=== PATIENT | female | born 1965 | race African-American/Black ===

== ENCOUNTER 2023-10-13 11:08 | Inpatient (IN) ==
[2023-10-13] MEDS: ZOSYN VIAL 3.375 GRAMS 3.375 G in NS 100 ML IV 100 ML IV SCH (15:14)
[2023-10-13] MEDS: LOVENOX INJ 80 MG SYR SC SCH (15:51)
[2023-10-13] MEDS: LR 1,000 ML IV 1,000 ML IV SCH (15:51)
[2023-10-13] MEDS: NS 250 ML IV 25 ML IV PRN (15:52)
[2023-10-13] MEDS ORDERED: GLUTOSE 15 GEL ORAL PO PRN (16:54)
[2023-10-13] MEDS ORDERED: D50W ABBOJECT SYR ONE (17:11)
[2023-10-13] MEDS: D50W ABBOJECT SYR IV ONE ×4 (17:15→23:40)
[2023-10-13 17:58] LABS: BASOPHILS # (AUTO) 0.1 X10^3/uL (0.0-0.1); BASOPHILS % (AUTO) 1.5 % (0.2-1.0); EOSINOPHILS # (AUTO) 0.1 x10^3/uL (0.0-0.2); EOSINOPHILS % (AUTO) 2.1 % (0.9-2.9); HEMATOCRIT 32.5 % (36.0-47.0); HEMOGLOBIN 10.8 g/dL (12.0-16.0); LYMPHOCYTES # (AUTO) 1.3 X10^3/uL (1.3-2.9); MEAN CORPUSCULAR HEMOGLOBIN 27.1 pg (27.0-34.0); MEAN CORPUSCULAR HGB CONC 33.3 g/dL (33.0-35.0); MEAN CORPUSCULAR VOLUME 81.1 fL (80.0-100.0); MEAN PLATELET VOLUME 10.1 fL (7.4-11.0); MONOCYTES # (AUTO) 0.3 x10^3/uL (0.3-0.8); MONOCYTES % (AUTO) 7.1 % (0.0-13.0); NEUTROPHILS % (AUTO) 54.3 % (42.0-75.0); PLATELET COUNT 225 X10^3/uL (150.0-450.0); RED BLOOD COUNT 4.01 X10^6/uL (3.5-5.4); RED CELL DISTRIBUTION WIDTH 13.7 % (11.6-16.5); WHITE BLOOD COUNT 3.7 X10^3/uL (3.6-10.0)
[2023-10-13 18:08] LABS: ALANINE AMINOTRANSFERASE 52 Units/L (12-78); ALBUMIN 3.5 g/dL (3.4-5.0); ALKALINE PHOSPHATASE 115 Units/L (46-116); ASPARTATE AMINO TRANSFERASE 12 Units/L (15-37); BLOOD UREA NITROGEN 19 mg/dL (7-18); CALCIUM 9.1 mg/dL (8.5-10.1); CARBON DIOXIDE 31.3 mmol/L (21-32); CHLORIDE 104 mmol/L (98-107); CREATININE 0.84 mg/dL (0.55-1.02); POTASSIUM 3.6 mmol/L (3.5-5.1); SODIUM 142 mmol/L (136-145); TOTAL PROTEIN 7.7 g/dL (6.4-8.2); eGFR NON BLACK RACES > 60 (>60)
[2023-10-13 18:11] VITALS: BMI 29.5
[2023-10-13 18:13] LABS: GLUCOSE 37 mg/dL (65-99)
[2023-10-13] MEDS ORDERED: CONSULT PHARMACY - POTASSIUM & MAGNESIUM XX SCH (19:00)
[2023-10-13] MEDS: D5 LR 1,000 ML 1,000 ML IV SCH (19:00)
[2023-10-13] MEDS: CATAPRES TAB 0.2 MG PO ONE (19:08)
[2023-10-13] MEDS: CATAPRES TAB 0.2 MG ONE (19:12)
[2023-10-13] MEDS: COREG TAB 6.25 MG PO SCH (21:28)
--- NOTE | 2023-10-13 21:40 | CT ---
EXAM: CTA AORTA WITH RUNOFF HISTORY: critical leg ischemia; hx:stroke ; unable to place arms above head for scan COMPARISON: None available TECHNIQUE: CT angiography of the abdominal aorta with bilateral lower extremity runoff with intravenous contrast . Three-dimensional reconstructions and/or MIPS images were produced and reviewed. FINDINGS: CTA aorta: There are bilateral pleural effusions present, moderate on the right and small on the left . Bilateral ground-glass airspace infiltrates and interseptal prominence suggests pulmonary edema. Some artifact from the patient's arms reduces sensitivity. Reflux of contrast into the hepatic vascu lature suggests changes of right heart dysfunction. Kidneys are not obstructed. Normal spleen. Non inflamed pancreas. Food material within the stomach. Large coarse mass in the uterus suggests involuting fibroid spanning greatest axial dimension of 7.1 cm. Additional smaller calcified fibroids are noted. The bowel is not obstructed. There is diffuse soft tissue anasarca. The abdominal aorta tapers normally. The celiac and superior mesenteric arteries are patent. The re nal arteries are patent. The common iliac bifurcation is patent. There is good flow in the bilatera l internal and external iliac arteries with moderate plaque in the midportion of the left internal il iac artery. The bilateral common femoral arteries demonstrate good flow. CTA bilateral lower extremity runoff: The right superficial femoral artery is patent with moderate mu ltifocal atherosclerotic plaque. There is 30% luminal narrowing of the distal right popliteal artery . The right anterior tibial artery is occluded along its length. There is flow noted in the posterior tibial and peroneal branch to the ankle. There is some reconstitution of flow in the dorsalis pedis artery at the foot due to collateralization. The left superficial femoral artery is patent. The left popliteal artery is patent with 25% luminal narrowing of the distal portion. The left anterior tibial artery is patent. There is long segment reduced flow in the left posterior tibial artery with no visualization of flow at the level just above the ankle. The left peroneal bra nch demonstrates weak, trickle flow which does not reach the ankle. [id number] bilateral lower extremity edema/anasarca is present. No suspicious bony lesions. IMPRESSION: CTA aorta: Signs of congestive heart failure in the lung bases. Large arteries of the abdomen are pa tent. CTA bilateral lower extremity runoff: Occlusion of the right anterior tibial artery along its length. Some reconstitution of flow in the right dorsalis pedis. There is long segment reduced flow in the left posterior tibial artery with no visualization of flow at the level just above the ankle. The left peroneal branch demonstrates weak, trickle flow which does not reach the ankle. Dose reduction techniques including automated exposure control (AEC) and adjustment of mA and kv were utilized. THIS IS AN ELECTRONICALLY VERIFIED FINAL REPORT 10/13/2023 9:37 PM - Electronically signed by Greg Barrera MD
[2023-10-13] MEDS: NS + KCL 20 MEQ/L 1,000 ML IV SCH (22:26)
[2023-10-13] MEDS: LOPRESSOR TAB 25 MG PO ONE (22:34)
[2023-10-13] MEDS: PERCOCET TAB 5/325 MG PO PRN (22:37)
[2023-10-14] MEDS: K-DUR TAB 20 MEQ PO SCH (00:51)
[2023-10-14] MEDS: MAG-OX TAB PO SCH (01:54)
[2023-10-14] MEDS: MAGNESIUM SULFATE 1 GRAM/100 mL PREMIX 1 G/100 ML BAG IV SCH (03:34)
[2023-10-14 06:13] LABS: BLOOD UREA NITROGEN 14 mg/dL (7-18); CALCIUM 8.7 mg/dL (8.5-10.1); CARBON DIOXIDE 29.7 mmol/L (21-32); CHLORIDE 105 mmol/L (98-107); GLUCOSE 69 mg/dL (65-99); MAGNESIUM 2.3 mg/dL (2.0-2.9); POTASSIUM 3.6 mmol/L (3.5-5.1); SODIUM 141 mmol/L (136-145); eGFR NON BLACK RACES > 60 (>60)
[2023-10-14] MEDS: D50W ABBOJECT SYR IV ONE (06:24)
[2023-10-14] MEDS: PROTONIX TAB 40 MG PO SCH (09:16)
[2023-10-14] MEDS: LIPITOR TAB 20 MG PO SCH (09:16)
[2023-10-14] MEDS: CELEXA PO SCH (09:16)
[2023-10-14] MEDS: NovoLIN R (or HumuLIN R) SC PRN (18:00)
--- NOTE | 2023-10-14 23:42 | NOTE.SOAP ---
Soap Note Note for Day of Date of Exam: 10/14/23 Subjective Data Subjective Data: Patient with evidence b/l LE ischemia with right 4th toe ischemia. Objective Data Temperature: 98.4 F Pulse Rate: 64 Respiratory Rate: 16 Blood Pressure: 176/83 O2 Sat by Pulse Oximetry: 95 Objective Data: Exam unchanged. CTA shows right AT and left PT occlusion Assessment Assessment: B/L LE ischemia Plan Plan: Continue Lovenox, Plan right leg arterial intervention on 10/16/2023.
--- NOTE | 2023-10-15 13:06 | NOTE.SOAP ---
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 Consulted to discuss options regarding right foot. Patient doing well; she expresses pain to the right foot and would like the toe amputated. Denies any constitutional symptoms at this time Objective Data Objective Data: Gangrenous right 4th digit, dry without maceration, purulence, drainage or malodor. No crepitus or erythema. Faintly palpable pedal pulses. Gross epicritic and protective sensation intact Assessment Assessment: Gangrene, right 4th digit PAD Plan Plan: Patient was seen bedside this afternoon. Diagnosis and treatment discussed with patient and family members in detail. Plan is for patient to undergo vascular intervention tomorrow and we will take the patient for 4th digit amputation of the right foot on friday. Patient NPO tonight for vascular and will be npo tomorrow night for friday. Patient will likely be okay for discharge from our standpoint after the procedure on friday.
[2023-10-15] MEDS: K-DUR TAB 20 MEQ PO SCH (19:21)
[2023-10-15] MEDS: CONSULT PHARMACY - POTASSIUM & MAGNESIUM XX SCH (19:21)
[2023-10-15] MEDS: OMNIPAQUE 350 mg/mL 50 mL BTL 50 ML ONE (19:22)
[2023-10-15] MEDS: OMNIPAQUE 350 mg/mL 100 mL BTL 100 ML ONE (19:22)
[2023-10-16] MEDS: HIBICLENS WASH EXT ONE (05:40)
--- NOTE | 2023-10-16 09:20 | NOTE.SOAP ---
Soap Note Note for Day of Date of Exam: 10/15/23 Subjective Data Subjective Data: Gregory doing well.Seen by Dr. El, podiatry , and she is scheduled for right leg intervention tomorrow 10/16/[address] El will perform right 4th toe ray amputation the nextg day, 10/17/2023. Hopefullly she can be discharged home on 10/17/2023 after the toe amputation Objective Data Temperature: 98.6 F Pulse Rate: 73 Respiratory Rate: 18 Blood Pressure: 168/84 O2 Sat by Pulse Oximetry: 97 Objective Data: right foot stable, gangrene right 4th toe with demarcation at it's base Assessment Assessment: critical ischemia right leg with gangrene right 4th toe, critical ischemia left leg as well Plan Plan: as above, left leg to have revascularization at a later date as outp atient.
--- NOTE | 2023-10-16 10:21 | EKG ---
Test Reason : pre-op for surgery Blood Pressure : */* mmHG Vent. Rate : 64 BPM Atrial Rate : 64 BPM P-R Int : 206 ms QRS Dur : 94 ms QT Int : 470 ms P-R-T Axes : 44 5 80 degrees QTc Int : 484 ms Sinus rhythm with premature atrial complexes Minimal voltage criteria for LVH, may be normal variant ( [place] product ) Anterior infarct , age undetermined Abnormal ECG No previous ECGs available Confirmed by Sharan La MD ([id number]) on 10/16/2023 4:49:24 PM Referred By: Confirmed By: Sharan La MD
--- NOTE | 2023-10-16 10:53 | DR.H&P ---
H&P History & Physical for Day of: H&P Date: 10/13/23 Chief Complaint Chief Complaint: pain both legs at rest with gangrenous changes right 4th toe History of Present Illness History of Present Illness: 58 yo female with history of hypertension, diabetes and hyperlipidemia who had a left hemispheric stroke in the past with paralysis of the right arm and right leg partially with partially Aphasia. She also has rest pain of both legs with gangrenous changes the right 4th toe. Ankle bracial indices obtained preoperatively show index of 0.7 on the right and 0.5 on the left. Waveforms are monophasic bilaterally. Past Medical History Past Medical History: CVA (With residual weakness of the right arm and right leg and aphasia ), Dyslipidemia, GERD and Hypertension Past Surgical History Surgical History: Other (cataract surgery ) Family History Family Medical History: Diabetes Mellitus, Cancer and Hypertension Social History Does patient currently use any type of tobacco product: No Type of Tobacco Use: None Does any household member use tobacco: No Alcohol Use: Rarely Drug Use: None Medications Home Medications: Home Medications Medication Instructions Recorded Confirmed Type apixaban 5 mg tablet (Eliquis) 5 mg PO BID 10/13/23 10/13/23 History atorvastatin 20 mg tablet 20 mg PO QDAY 10/13/23 10/13/23 History carvedilol 6.25 mg tablet 6.25 mg PO BID 10/13/23 10/13/23 History citalopram 10 mg tablet 10 mg PO QDAY 10/13/23 10/13/23 History famotidine 20 mg tablet 20 mg PO QPM PRN 10/13/23 10/13/23 History glimepiride 4 mg tablet 4 mg PO BID 10/13/23 10/13/23 History Allergies Allergies Allergy/AdvReac Type Severity Reaction Status Date / Time No Known Allergies Allergy Verified 10/13/23 15:06 Labs 10/13/23 17:13 10/14/23 05:35 Labs: Laboratory WBC 3.7 X10^3/uL (3.6-10.0) 10/13/23 17:13 RBC 4.01 X10^6/uL (3.5-5.4) 10/13/23 17:13 Hgb 10.8 g/dL (12.0-16.0) L 10/13/23 17:13 Hct 32.5 % (36.0-47.0) L 10/13/23 17:13 MCV 81.1 fL (80.0-100.0) 10/13/23 17:13 MCH 27.1 pg (27.0-34.0) 10/13/23 17:13 MCHC 33.3 g/dL (33.0-35.0) 10/13/23 17:13 RDW 13.7 % (11.6-16.5) 10/13/23 17:13 Plt Count 225 X10^3/uL (150.0-450.0) 10/13/23 17:13 MPV 10.1 fL (7.4-11.0) 10/13/23 17:13 Neut % (Auto) 54.3 % (42.0-75.0) 10/13/23 17:13 Lymph % (Auto) 35.0 % (21.0-51.0) 10/13/23 17:13 [place] % (Auto) 7.1 % (0.0-13.0) 10/13/23 17:13 Eos % (Auto) 2.1 % (0.9-2.9) 10/13/23 17:13 Baso % (Auto) 1.5 % (0.2-1.0) H 10/13/23 17:13 Neut # (Auto) 2.0 x10^3/uL (2.2-4.8) L 10/13/23 17:13 Lymph # (Auto) 1.3 X10^3/uL (1.3-2.9) 10/13/23 17:13 [place] # (Auto) 0.3 x10^3/uL (0.3-0.8) 10/13/23 17:13 Eos # (Auto) 0.1 x10^3/uL (0.0-0.2) 10/13/23 17:13 Baso # (Auto) 0.1 X10^3/uL (0.0-0.1) 10/13/23 17:13 Absolute Nucleated RBC 0.2 /100WBC 10/13/23 17:13 Sodium 141 mmol/L (136-145) 10/14/23 05:35 Corrected Sodium TNP 10/14/23 05:35 Potassium 3.6 mmol/L (3.5-5.1) 10/14/23 05:35 Chloride 105 mmol/L (98-107) 10/14/23 05:35 Carbon Dioxide 29.7 mmol/L (21-32) 10/14/23 05:35 BUN 14 mg/dL (7-18) 10/14/23 05:35 Creatinine 0.80 mg/dL (0.55-1.02) 10/14/23 05:35 Est GFR (MDRD) Af Amer > 60 (>60) 10/14/23 05:35 Est GFR (MDRD) Non-Af > 60 (>60) 10/14/23 05:35 Glucose 69 mg/dL (65-99) 10/14/23 05:35 POC Glucose (mg/dL) 188 mg/dL (65-99) H 10/16/23 06:43 Calcium 8.7 mg/dL (8.5-10.1) 10/14/23 05:35 Corrected Calcium TNP 10/13/23 17:13 Magnesium 2.3 mg/dL (2.0-2.9) 10/14/23 05:35 Total Bilirubin 0.30 mg/dL (0.2-1.0) 10/13/23 17:13 AST 12 Units/L (15-37) L 10/13/23 17:13 ALT 52 Units/L (12-78) 10/13/23 17:13 Alkaline Phosphatase 115 Units/L (46-116) 10/13/23 17:13 Total Protein 7.7 g/dL (6.4-8.2) 10/13/23 17:13 Albumin 3.5 g/dL (3.4-5.0) 10/13/23 17:13 Globulin 4.2 g/dL (2.5-4.5) 10/13/23 17:13 Albumin/Globulin Ratio 0.8 Ratio (1.1-2.1) L 10/13/23 17:13 Review of Systems Constitutional: See HPI Eyes: No Symptoms Reported ENT: No Symptoms Reported Respiratory: No Symptoms Reported Cardiovascular: See HPI Gastrointestinal: See HPI Genitourinary: No Symptoms Reported Musculoskeletal: See HPI Skin: No Symptoms Reported Neurological: See HPI Physical Exam Vital Signs: Vital Signs Temperature 98.6 F Temperature 98.3 F Temperature 98.5 F Pulse Rate [Radial] 64 Pulse Rate [Radial] 75 Pulse Rate 73 Respiratory Rate 18 Respiratory Rate 18 Respiratory Rate 18 Blood Pressure [Left Arm] 160/86 Blood Pressure [Left Arm] 169/96 Blood Pressure [Left Arm] 174/80 Blood Pressure 168/84 O2 Sat by Pulse Oximetry 97 O2 Sat by Pulse Oximetry 99 O2 Sat by Pulse Oximetry 99 Oriented: Normal, Time, Person, Place and Other (patient has some difficulty getting words out due to aphasia but understands completely ) Eyes: Normal Ear: Normal Nose: Normal Throat: Normal Respiratory: Clear Throughout Cardiovascular: Normal : Normal Auscultation: Bowel Sounds: Normal Palpation: Normal Tenderness: Normal Skin: Normal Musculoskeletal: Normal (normal composition of arms and legs however does have right side disability of arm and leg. This is not complete ) Psychiatric: Normal Mood Description: Calm Affect: Normal Speech Pattern: Aphasic (nonfluent ) Assessment/Plan (1) Atherosclerosis of [place] arteries of extremities with rest pain, right leg: Narrative Support Text: patient to be admitted and placed on therapeutic Lovenox and do. Will obtain CT Angiogrm of the aorta with bilateral lower extremity runoff. Will start IV antibiotics. Consult Podiatry to evaluate the gangrenous right fourth toe Status: Acute (2) Atherosclerosis of [place] arteries of extremities with rest pain, left leg: Status: Acute Plan: critical ischem of the left leg can be addressed as an outpatient after we resolve the right leg problem (3) Personal history of cerebrovascular accident with current residual effects: Status: Acute Plan: stable (4) Essential (primary) hypertension: Status: Acute Plan: home medications (5) GE reflux: Status: Acute Plan: po Protonix (6) Hyperlipidemia: Status: Acute Plan: home medications (7) Type 2 diabetes mellitus: Status: Acute Plan: sliding scale insulin for now Review H&P Reviewed: Yes Patient was examined?: Yes
[2023-10-16] MEDS: NS 1,000 ML IV 1,000 ML ONE ×2 (11:48→13:32)
[2023-10-16] MEDS: XYLOCAINE 2 % (PLAIN) ONE (12:34)
[2023-10-16] MEDS ORDERED: PRECEDEX INJ VIAL ONE (12:34)
[2023-10-16] MEDS ORDERED: KETAMINE HCL ONE (12:34)
[2023-10-16] MEDS: VERSED ONE (12:34)
[2023-10-16] MEDS: FENTANYL VIAL INJ 100 mcg ONE (12:34)
[2023-10-16] MEDS: DIPRIVAN VIAL 20 ML ONE ×2 (12:34→13:37)
[2023-10-16] MEDS: OFIRMEV IV 1000 MG VIAL 1,000 MG/100 ML VIAL IV ONE (12:34)
[2023-10-16] MEDS: NS 100 ML IV 100 ML ONE (12:36)
[2023-10-16] MEDS: ANCEF VIAL 1 GRAM ONE (12:36)
[2023-10-16] MEDS: DECADRON INJ ONE (12:47)
[2023-10-16] MEDS: ZOFRAN INJ 4 MG VIAL ONE (12:47)
[2023-10-16] MEDS: PEPCID 20 MG VIAL ONE (12:47)
[2023-10-16] MEDS: ROBINUL ONE (12:51)
[2023-10-16] MEDS: MARCAINE 0.5% ONE (13:06)
[2023-10-16] MEDS: VISIPAQUE 100 ML ONE (13:06)
[2023-10-16] MEDS: VISIPAQUE 50 ML ONE (13:06)
[2023-10-16] MEDS: HEPARIN SODIUM IN D5W 75,000 UNITS/1,500 ML BAG ONE (13:06)
[2023-10-16] MEDS: HEPARIN SODIUM INJ 5000 UNITS ONE ×2 (13:09→14:31)
[2023-10-16] MEDS: NS 500 ML IV 500 ML IV ONE (13:31)
[2023-10-16] MEDS: PROTAMINE SULFATE 50 MG VIAL ONE (14:31)
--- NOTE | 2023-10-16 14:46 | OR.IMMED ---
IMMEDIATE POST-OP NOTE Immediate Post-Op Note Date of surgery/procedure: 10/16/23 Pre-Op Diagnosis: Critical ischemia of right leg with gangerene of right forth toe Post-Op Diagnosis: same Procedure: diagnostic aortogram, diagnostic arteriogram right leg, atherectomy and balloon Angioplasty of proximal right posterior tibial occlusion Description of Procedure: see dictation Surgeon/Bootmaker Hand: Leonardo Findings: completely occluded right anterior tibial artery, occluded proximal right posterior tibial artery with reconstitution at the ankle, occluded mid portion of peroneal artery Estimated Blood Loss: 150 cc Complications: none Progress Notes: patient returned To the floor. ,Begin ADA diet. For right fourth toe amputation tomorrow. probably discharg heome after that .
[2023-10-17] MEDS: HIBICLENS WASH EXT ONE (05:36)
[2023-10-17 05:48] LABS: BASOPHILS % (AUTO) 0.4 % (0.2-1.0); EOSINOPHILS % (AUTO) 0.7 % (0.9-2.9); HEMATOCRIT 31.9 % (36.0-47.0); HEMOGLOBIN 10.5 g/dL (12.0-16.0); LYMPHOCYTES # (AUTO) 1.3 X10^3/uL (1.3-2.9); LYMPHOCYTES % (AUTO) 18.5 % (21.0-51.0); MEAN CORPUSCULAR HEMOGLOBIN 26.8 pg (27.0-34.0); MEAN CORPUSCULAR HGB CONC 33.1 g/dL (33.0-35.0); MEAN CORPUSCULAR VOLUME 81.1 fL (80.0-100.0); MEAN PLATELET VOLUME 9.9 fL (7.4-11.0); MONOCYTES # (AUTO) 0.8 x10^3/uL (0.3-0.8); MONOCYTES % (AUTO) 10.7 % (0.0-13.0); NEUTROPHILS # (AUTO) 4.9 x10^3/uL (2.2-4.8); NEUTROPHILS % (AUTO) 69.7 % (42.0-75.0); PLATELET COUNT 212 X10^3/uL (150.0-450.0); RED BLOOD COUNT 3.93 X10^6/uL (3.5-5.4); RED CELL DISTRIBUTION WIDTH 13.8 % (11.6-16.5)
[2023-10-17] MEDS ORDERED: APRESOLINE INJ 20 MG VIAL ONE (07:31)
[2023-10-17] MEDS: NORMODYNE INJ 20 MG VIAL IVP ONE (07:38)
[2023-10-17] MEDS: APRESOLINE INJ 20 MG VIAL IVP ONE (08:11)
--- NOTE | 2023-10-17 08:15 | CT ---
EXAM:BRAIN W/O CONHISTORY:Altered mental statusTECHNIQUE:Axial noncontrast images with coronal and sagittal reformats. Dose reduction procedures were used with mA/kv adjusted for body size.COMPARISON:NoneFINDINGS:The ventricles are normal in size shape and position with the exception compensatory enlargement the left lateral ventricle secondary to what appears to be a large old CVA in the distribution of the left middle cerebral artery. A recent extension can not be excluded. There also appears to be some mild compensatory enlargement of 3rd ventricle secondary to old CVAs involving the left basal ganglia. Recent extension not excluded. There are no focal areas of abnormal attenuation to suggest recent CVA, hemorrhage, mass lesion, or extra-axial fluid collection. The calvarium is intact. The visualized sinuses are clear. If acute CVA or extension of the patient's old CVAs is a clinical consideration MRI with diffusion imaging would be of further diagnostic value and should be considered.IMPRESSION:No definite acute intracranial abnormality identified (see recommendation as above)Large old CVA in the distribution of the left MCA. Recent extension not excludedOld CVAs involving the left basal ganglia. Recent extension not excludedTHIS IS AN ELECTRONICALLY VERIFIED FINAL REPORT10/17/2023 8:11 AM - Electronically signed by Dong Colon MD
--- NOTE | 2023-10-17 08:31 | EKG ---
Test Reason : AMS Blood Pressure : */* mmHG Vent. Rate : 68 BPM Atrial Rate : 68 BPM P-R Int : 192 ms QRS Dur : 90 ms QT Int : 394 ms P-R-T Axes : 35 -16 87 degrees QTc Int : 418 ms Normal sinus rhythm Inferior infarct , age undetermined Possible Anterior infarct (cited on or before 16-OCT-2023) Abnormal ECG When compared with ECG of 16-OCT-2023 10:04, premature atrial complexes are no longer present Questionable change in initial forces of Anterior leads QT has shortened Confirmed by Sharan La MD ([id number]) on 10/17/2023 10:04:09 AM Referred By: Confirmed By: Sharan La MD
[2023-10-17] MEDS: NORMODYNE INJ 100 MG VIAL ONE (08:34)
--- NOTE | 2023-10-17 09:26 | RAD ---
EXAMINATION: CHEST, 1 VIEW HISTORY: AMS; HX- LOWER LEG ISHEMIA . COMPARISON STUDY: None. TECHNIQUE: Single portable AP view of the chest upright FINDINGS: Hazy opacities scattered throughout both lungs. Mild cardiac silhouette enlargement with mild pulmon hawk vascular congestion. Bones are intact. IMPRESSION: Hazy opacities scattered throughout both lungs, cardiac silhouette enlargement with pulmonary vascula r congestion. THIS IS AN ELECTRONICALLY VERIFIED FINAL REPORT 10/17/2023 9:23 AM - Electronically signed by Bertha Fischer MD
[2023-10-17] MEDS: NOZIN NASAL SANITIZER TP SCH (09:28)
[2023-10-17] MEDS: NS 1,000 ML IV 1,000 ML ONE (09:42)
[2023-10-17] MEDS: ASPIRIN 81 MG CHEWTAB PO SCH (10:40)
--- NOTE | 2023-10-17 10:55 | NOTE.SOAP ---
Soap Note Note for Day of Date of Exam: 10/17/23 Subjective Data Subjective Data: Patient was seen bedside in the preop area today. Sleepy but alert. She was unresponsive this am with vitals stable; stroke was ruled out. She denies anymore pain to her fourth toe after intervention yesterday Objective Data Objective Data: Toe improved in color, has a capillary refill and mild eschar on the dorsal aspect. No crepitus or erythema. Palpable pedal pulses. Gross epicritic and protective sensation intact Assessment Assessment: Gangrene, right 4th digit PAD Plan Plan: Patient was seen am, upon evaluation we agreed that the toe is responding well to vascular intervention and opted to monitor how it improves. We will not be doing the toe amputation today. It is stable and improving in color. Patient can follow up with dr. rodriguez in one week to see progress. Patient okay for dis charge from podiatry standpoint
--- NOTE | 2023-10-17 12:34 | DR.CONSULT ---
CONSULT Consultation for Day of: Date: 10/17/23 Chief Complaint Chief Complaint: AMS Allergies Allergies Allergy/AdvReac Type Severity Reaction Status Date / Time No Known Allergies Allergy Verified 10/13/23 15:06 History of Present Illness History of Present Illness: PT IS 58BF, PT OF DR VILLARREAL WITH ACUTE ISCHEMIC LIMB DISEASE, SP VASCULAR INTERVENTION EARLIER THIS WEEK. PT HAS PMH OF CVA WITH RESIDUAL DEFICITS TO RIGHT UPPER AND LOWER EXTREMITIES. PT HAD REPORTS OF AMS THIS AM, CONFUSION WHICH WAS NEW FOR HER PER NURSING STAFF. CT HEAD, CE AND EKG WAS ORDERED WITH CXR TO RO ACUTE FINDINGS. UPON ASSESSMENT THIS AM, FOLLOWING AMS EPISODE, PT WAS AWAKE AND RESPONSIVE WITH APPROPTIATE RESPONSES AT THAT TIME. Past Medical History Past Medical History: CVA (With residual weakness of the right arm and right leg and aphasia ), Dyslipidemia, GERD and Hypertension Past Surgical History Surgical History: Other (cataract surgery ) Family History Family Medical History: Diabetes Mellitus, Cancer and Hypertension Social History Does patient currently use any type of tobacco product: No Type of Tobacco Use: None Does any household member use tobacco: No Alcohol Use: Rarely Drug Use: None Medications Home Medications: No Known Allergies Allergy (Verified 10/13/23 15:06) CONTINUE taking the following medications apixaban 5 mg tablet (Eliquis) 5 mg PO BID 10/13/23 [History] atorvastatin 20 mg tablet 20 mg PO QDAY 10/13/23 [History] carvedilol 6.25 mg tablet 6.25 mg PO BID 10/13/23 [History] citalopram 10 mg tablet 10 mg PO QDAY 10/13/23 [History] famotidine 20 mg tablet 20 mg PO QPM PRN 10/13/23 [History] glimepiride 4 mg tablet 4 mg PO BID 10/13/23 [History] Review of Systems Constitutional: Weakness Eyes: No Symptoms Reported ENT: No Symptoms Reported Respiratory: denies Shortness of Breath Cardiovascular: denies Chest Pain Gastrointestinal: denies No Symptoms Reported Genitourinary: Incontinence Musculoskeletal: Leg Pain Skin: Wound Neurological: Weakness (CHRONIC RUE AND RLE), Change in Speech and Confusion Physical Exam Vital Signs: Vital Signs Pulse Rate [Radial] 77 Pulse Rate 69 Respiratory Rate 18 Respiratory Rate 20 Blood Pressure [Left Arm] 186/88 Blood Pressure 165/83 O2 Sat by Pulse Oximetry 100 O2 Sat by Pulse Oximetry 94 Oriented: Person and Place Eyes: Normal Nose: Normal Respiratory: RLL Diminished and LLL Diminished Cardiovascular: Normal Auscultation: Bowel Sounds: Normal Skin: Wound Musculoskeletal: Right, Arm, Leg, Foot (NECROTIC TOES TO RIGHT FOOT), Motor Deficit, Sensory Deficit and Instability Mood Description: Flat Speech Pattern: Appropriate, Delayed (CHRONIC SPEECH IMPAIRMENT) and Slurred Plan (1) AMS (altered mental status): Status: Acute Narrative Support Text: ACUTE EPISODE, AM LABS, CXR EKG AND CE STAT CT HEAD TO RO ACUTE CVA CONTINUE BP CONTROL, STATIN THERAPY ADD FLP PT AM LAB COLLECTION (2) Atherosclerosis of [place] arteries of extremities with rest pain, right leg: Status: Acute (3) Atherosclerosis of [place] arteries of extremities with rest pain, left leg: Status: Acute (4) Personal history of cerebrovascular accident with current residual effects: Status: Acute (5) Essential (primary) hypertension: Status: Acute (6) GE reflux: Status: Acute (7) Hyperlipidemia: Status: Acute (8) Type 2 diabetes mellitus: Status: Acute
--- NOTE | 2023-10-17 13:13 | NOTE.SOAP ---
Soap Note Note for Day of Date of Exam: 10/17/23 Subjective Data Subjective Data: POD # 1 after revascularization of the rigth foot with atherectomy and balloon angioplasty of the right posterior tibial artery which is the only artery to the foot. Was planning on amputation right 4th toe by Dr. El today but the toe is much improved and he is going [place] observe this . History of right hemipareisis from CVA in the past and this AM was resting and not responding. She is now back to [facility] and CT of head negative. Did have hypertension treated with IV Lopressor and BP under better control. Objective Data Temperature: 98.2 F Pulse Rate: 69 Respiratory Rate: 18 Blood Pressure: 165/83 O2 Sat by Pulse Oximetry: 100 Objective Data: Asa above , right leg warm with improvement of the right 4th toe. Assessment Assessment: S/P revascularization of right foot, doing well, episode this AM unexplained Plan Plan: Was planning on discharge today . Will delay until tomorrow. Will plan arterial intervention of the left leg in future as outpatient.
[2023-10-17] MEDS: LASIX IVP ONE (13:17)
[2023-10-17] MEDS: K-DUR TAB 20 MEQ PO ONE (13:17)
[2023-10-17] MEDS: ROBITUSSIN DM PO SCH (13:17)
[2023-10-17] MEDS: NS 1/2 1,000 ML IV 1,000 ML IV SCH (13:44)
[2023-10-17] MEDS: NS 1/2 1,000 ML IV 1,000 ML IV ONE (13:47)
[2023-10-17] MEDS ORDERED: DUONEB 0.5 MG/3 MG (3 mL) NEB PRN (16:32)
[2023-10-18] MEDS ORDERED: NS 1/2 1,000 ML IV 1,000 ML IV ONE (03:06)
[2023-10-18] MEDS ORDERED: HIBICLENS WASH EXT ONE (05:00)
[2023-10-18 08:38] LABS: BASOPHILS # (AUTO) 0.1 X10^3/uL (0.0-0.1); BASOPHILS % (AUTO) 1.4 % (0.2-1.0); EOSINOPHILS # (AUTO) 0.2 x10^3/uL (0.0-0.2); EOSINOPHILS % (AUTO) 3.7 % (0.9-2.9); HEMATOCRIT 28.3 % (36.0-47.0); HEMOGLOBIN 9.5 g/dL (12.0-16.0); LYMPHOCYTES # (AUTO) 1.1 X10^3/uL (1.3-2.9); LYMPHOCYTES % (AUTO) 16.8 % (21.0-51.0); MEAN CORPUSCULAR HEMOGLOBIN 27.1 pg (27.0-34.0); MEAN CORPUSCULAR HGB CONC 33.6 g/dL (33.0-35.0); MEAN CORPUSCULAR VOLUME 80.7 fL (80.0-100.0); MEAN PLATELET VOLUME 9.4 fL (7.4-11.0); MONOCYTES # (AUTO) 0.7 x10^3/uL (0.3-0.8); NEUTROPHILS # (AUTO) 4.5 x10^3/uL (2.2-4.8); NEUTROPHILS % (AUTO) 68.1 % (42.0-75.0); PLATELET COUNT 188 X10^3/uL (150.0-450.0); RED BLOOD COUNT 3.51 X10^6/uL (3.5-5.4); RED CELL DISTRIBUTION WIDTH 13.3 % (11.6-16.5); WHITE BLOOD COUNT 6.6 X10^3/uL (3.6-10.0)
[2023-10-18 08:48] LABS: ALANINE AMINOTRANSFERASE 24 Units/L (12-78); ALBUMIN 2.8 g/dL (3.4-5.0); ALKALINE PHOSPHATASE 87 Units/L (46-116); ASPARTATE AMINO TRANSFERASE 12 Units/L (15-37); BLOOD UREA NITROGEN 10 mg/dL (7-18); CALCIUM 8.4 mg/dL (8.5-10.1); CARBON DIOXIDE 33.7 mmol/L (21-32); CHLORIDE 101 mmol/L (98-107); COR CA(FOR HYPOALB) 9.4 mg/dL (8.5-10.1); CREATININE 0.85 mg/dL (0.55-1.02); GLUCOSE 93 mg/dL (65-99); POTASSIUM 3.6 mmol/L (3.5-5.1); SODIUM 139 mmol/L (136-145); TOTAL PROTEIN 6.6 g/dL (6.4-8.2); eGFR NON BLACK RACES > 60 (>60)
--- NOTE | 2023-10-18 12:47 | RAD ---
EXAM: CHEST, 1 VIEW HISTORY: PNEUMONIA, FLUID OVERLOAD; HX" CVA. HTN, DM COMPARISON: 10/17/2023 FINDINGS: The trachea is midline. The cardiac silhouette is unremarkable . The lungs are clear without focal infiltrate or effusion. The bony thorax is unremarkable. IMPRESSION: No acute cardiopulmonary disease. THIS IS AN ELECTRONICALLY VERIFIED FINAL REPORT 10/18/2023 12:43 PM - Electronically signed by Matthieu Helm MD
--- NOTE | 2023-10-18 15:26 | NOTE.SOAP ---
Soap Note Note for Day of Date of Exam: 10/18/23 Subjective Data Subjective Data: S/P revascularization of right leg with improvement of ischemiic right 4th toe. Had episode yesterday when she would not speak, seen in consultation by Umu Ortiz, CT of head negative and she has returned to baseline. Because right 4th toe improved, toe kayla be observed. Was planning on dischage to home but patient's familywant her to be in SNF. Objective Data Temperature: 98.1 F Pulse Rate: 75 Respiratory Rate: 18 Blood Pressure: 156/88 O2 Sat by Pulse Oximetry: 94 Objective Data: Baseline neurological exam, right hemiparesis with non- fluent aphasia Right 4th toe stable Assessment Assessment: s/p revascualrizartion right foot with improvement and had brief change in neurological status now resolved Plan Plan: Stop Lovenox, change to Xarelto 2.5 mg po BID and will consult for SNF placement.
--- NOTE | 2023-10-18 18:22 | DR.OPNOTE ---
OP NOTE Pre-Op Diagnosis: critical ischemia right leg with ischemic changes right 4th toe Post-Op Diagnosis: same Procedure Date Date Of Procedure: 10/16/23 Procedure: PROCEDURE: DIAGNOSTIC AORTOGRAM, DIAGNOSTIC ARTERIOGRAM RIGHT LEG , ATHERECTOMY AND BALLOON ANGIOPLASTY RIGHT POSERIOR TIBIAL ARTERY NARRATIVE : The patient was taken to the operative suite and placed in the supine position. The left groin and entire right leg were prepped and draped in sterile fashion. The patient was given intravenous sedation supervised by myself. Time out for the procedure obtained. Ultrasound used to identify the left femoral artery and the skin overlying it infiltrated with 0.5% Marcaine. Ultrasound then used to guide puncture of the left femoral artery and a 0.012 inch guide wire was placed. Incision made over the guide wire at the skin edge with a # 11 knife blade and a micro sheath placed over the guide wire into the left femoral artery The small guidewire exchanged for a 0.035 inch Advantage glide wire and the micro sheath exchanged for a 5 Fr vascular sheath. Patient given 5000 units of intravenous heparin. Omni catheter was placed over the guide wire into the aorta and diagnostic aortogram carried out with the power injector showing normal aorta and iliac arteries . Omni catheter was used to steer the guide wire down the right common iliac artery to the distal right external iliac artery . Omni catheter was exchanged for a Richey catheter and sequential arteriograms carried out of the right lower extremity showing occluded right anterior tibial artery, complete occlusion of the proximal right posterior tibial artery and complete occlusion of the midportion of the right peroneal artery . The 5 Fr sheath in the left groin then exchanged for a 7 Fr destination sheath which was parked in mid right superficial femoral artery .Richey catheter and the guide wire were used to traverse the arteries of the right leg but I could not get across the occlusion of the proximal posterior tibial artery. The right posterior tibial artery artery identified with ultrasound at the ankle and the skin overlying it infiltrated with 0.5% Marcaine . Ultrasound used to guide puncture of the right poasterior tibial artery and 0.014 inch wire placed.Incision made over the wire at the skin edge and 5 Fr slick sheath placed over wire into the posterir tibial artery. The small wire exchanged for a 0.035 inch Advantage glide wire . The wire taken throught the occlusion into the proximal right posterior tibial artery and into the superficial femoral artery .This was selective catheterization. The wire placed into the sheath in the right superficial femoral artery and taken out the left groin .0.035 inch wire removed and exchanged for a 0.014 inch wire in antegrade fashion . Over this wire we placed the [place] Stream atherectomy device and performed atherectomy of the proximal right posterior tibial artery . At this point we performed balloon dilatation of the proximal right superficial femoral artery using a 2.5 mmx 100 mm balloon . At the completion of this a follow up arteriogram showed still some stenosis which was treated with a 3mmx 60 mm ballon Repeat arteriogram showed excellent result. . All wires and devices removed. The 7 Fr sheath was pulled back into the aorta and a 0.035 inch wire placed. The destination sheath exchanged for an Angioseal device used to close the puncture of the left femoral artery. The puncture of the right posterior tibial artery controlled with a tibial band .Dressing applied to the left groin. The patient taken to same day surgery in good condition. Type of Anesthesia: Local (plus MAC, 0.55 Marcaine ) Anesthesia Comment: plus MAC Findings: complete occlusion right anterior tibial artery, occluded proximal right posterior tibial artery, complete occlusion midportion of the right peroneal artery Type of Fluids Used:: Lactated Ringers Total Amount of Fluid Infused:: 300cc Urine output: 1000 cc EBL: 150 cc Complications:: none Needle/Sponge Count:: correct Disposition/Condition: Pt. tolerated procedure without difficulty. Taken to [facility] in stable condition.
[2023-10-18] MEDS: BETADINE SOLN ONE (19:14)
[2023-10-18] MEDS: DIPRIVAN VIAL 0 ML ONE (19:14)
[2023-10-18] MEDS: ANCEF VIAL 1 GRAM ONE (19:14)
[2023-10-18] MEDS: NS 100 ML IV 100 ML ONE (19:14)
[2023-10-18] MEDS: NS 1/2 1,000 ML IV 1,000 ML IV ONE (19:15)
[2023-10-18] MEDS: XARELTO PO SCH (20:31)
[2023-10-19] MEDS ORDERED: NS 1/2 1,000 ML IV 1,000 ML IV ONE (04:19)
[2023-10-19 06:29] LABS: BASOPHILS # (AUTO) 0.1 X10^3/uL (0.0-0.1); BASOPHILS % (AUTO) 1.2 % (0.2-1.0); EOSINOPHILS # (AUTO) 0.2 x10^3/uL (0.0-0.2); EOSINOPHILS % (AUTO) 2.6 % (0.9-2.9); HEMATOCRIT 26.4 % (36.0-47.0); HEMOGLOBIN 8.9 g/dL (12.0-16.0); LYMPHOCYTES # (AUTO) 1.4 X10^3/uL (1.3-2.9); LYMPHOCYTES % (AUTO) 20.2 % (21.0-51.0); MEAN CORPUSCULAR HEMOGLOBIN 27.2 pg (27.0-34.0); MEAN CORPUSCULAR HGB CONC 33.7 g/dL (33.0-35.0); MEAN CORPUSCULAR VOLUME 80.7 fL (80.0-100.0); MEAN PLATELET VOLUME 9.6 fL (7.4-11.0); MONOCYTES # (AUTO) 0.8 x10^3/uL (0.3-0.8); MONOCYTES % (AUTO) 11.7 % (0.0-13.0); NEUTROPHILS # (AUTO) 4.5 x10^3/uL (2.2-4.8); NEUTROPHILS % (AUTO) 64.3 % (42.0-75.0); PLATELET COUNT 177 X10^3/uL (150.0-450.0); RED BLOOD COUNT 3.27 X10^6/uL (3.5-5.4); RED CELL DISTRIBUTION WIDTH 13.6 % (11.6-16.5)
[2023-10-19 06:54] LABS: ALANINE AMINOTRANSFERASE 22 Units/L (12-78); ALBUMIN 2.7 g/dL (3.4-5.0); ALKALINE PHOSPHATASE 80 Units/L (46-116); ASPARTATE AMINO TRANSFERASE 10 Units/L (15-37); BLOOD UREA NITROGEN 9 mg/dL (7-18); CALCIUM 8.4 mg/dL (8.5-10.1); CARBON DIOXIDE 31.6 mmol/L (21-32); CHLORIDE 101 mmol/L (98-107); COR CA(FOR HYPOALB) 9.4 mg/dL (8.5-10.1); CREATININE 0.83 mg/dL (0.55-1.02); GLUCOSE 90 mg/dL (65-99); POTASSIUM 3.4 mmol/L (3.5-5.1); SODIUM 139 mmol/L (136-145); TOTAL PROTEIN 6.3 g/dL (6.4-8.2); eGFR NON BLACK RACES > 60 (>60)
[2023-10-19] MEDS ORDERED: CONSULT PHARMACY - POTASSIUM & MAGNESIUM XX SCH (08:00)
[2023-10-19] MEDS: K-DUR TAB 20 MEQ PO SCH (08:32)
[2023-10-19] MEDS: TUSSIONEX PENNKINETIC SUSP PO PRN (09:30)
[2023-10-19] MEDS: NS 1/2 1,000 ML IV 1,000 ML IV ONE (18:56)
[2023-10-19] MEDS: MILK OF MAGNESIA PO SCH (20:32)
[2023-10-19] MEDS: COLACE CAP 100 MG PO SCH (20:32)
--- NOTE | 2023-10-19 23:40 | NOTE.SOAP ---
Soap Note Note for Day of Date of Exam: 10/19/23 Subjective Data Subjective Data: S/P revascularization of right leg with improvement of right 4th toe . No further neurological events Objective Data Temperature: 99.0 F Pulse Rate: 63 Respiratory Rate: 18 Blood Pressure: 165/74 O2 Sat by Pulse Oximetry: 92 Objective Data: Warm right foot with biphasic doppler flow right ankle . Superficial skin slough of the right 4th toe Assessment Assessment: Ischemic rignt foot. Old CVA BP under better control Plan Plan: Await SNF placement
[2023-10-20 05:04] LABS: BASOPHILS # (AUTO) 0.1 X10^3/uL (0.0-0.1); BASOPHILS % (AUTO) 1.2 % (0.2-1.0); EOSINOPHILS # (AUTO) 0.1 x10^3/uL (0.0-0.2); EOSINOPHILS % (AUTO) 2.2 % (0.9-2.9); HEMATOCRIT 27.3 % (36.0-47.0); HEMOGLOBIN 9.1 g/dL (12.0-16.0); LYMPHOCYTES # (AUTO) 1.6 X10^3/uL (1.3-2.9); LYMPHOCYTES % (AUTO) 24.1 % (21.0-51.0); MEAN CORPUSCULAR HEMOGLOBIN 27.3 pg (27.0-34.0); MEAN CORPUSCULAR HGB CONC 33.4 g/dL (33.0-35.0); MEAN CORPUSCULAR VOLUME 81.6 fL (80.0-100.0); MEAN PLATELET VOLUME 9.8 fL (7.4-11.0); MONOCYTES # (AUTO) 0.8 x10^3/uL (0.3-0.8); MONOCYTES % (AUTO) 12.3 % (0.0-13.0); NEUTROPHILS % (AUTO) 60.2 % (42.0-75.0); PLATELET COUNT 190 X10^3/uL (150.0-450.0); RED BLOOD COUNT 3.35 X10^6/uL (3.5-5.4); RED CELL DISTRIBUTION WIDTH 13.9 % (11.6-16.5); WHITE BLOOD COUNT 6.6 X10^3/uL (3.6-10.0)
[2023-10-20 05:23] LABS: ALANINE AMINOTRANSFERASE 22 Units/L (12-78); ALBUMIN 2.6 g/dL (3.4-5.0); ALKALINE PHOSPHATASE 76 Units/L (46-116); ASPARTATE AMINO TRANSFERASE 11 Units/L (15-37); BLOOD UREA NITROGEN 9 mg/dL (7-18); CALCIUM 8.3 mg/dL (8.5-10.1); CARBON DIOXIDE 32.7 mmol/L (21-32); CHLORIDE 103 mmol/L (98-107); COR CA(FOR HYPOALB) 9.4 mg/dL (8.5-10.1); COR NA(FOR HYPERGLY) 140 mmol/L (136-145); CREATININE 0.78 mg/dL (0.55-1.02); GLUCOSE 117 mg/dL (65-99); POTASSIUM 3.6 mmol/L (3.5-5.1); SODIUM 140 mmol/L (136-145); TOTAL PROTEIN 6.4 g/dL (6.4-8.2); eGFR NON BLACK RACES > 60 (>60)
[2023-10-20 12:13] VITALS: RESP 18
--- NOTE | 2023-10-20 13:56 | W.DIS.FURT ---
Summary of Discharge Discharge Summary of Date Date of Exam: 10/20/23 Admission Date Date of Admission: 10/13/23 Admission Diagnosis Hospital Course: This patient is a 58 year old female with history of left hemispheric stroke with right hemiparesis and some difficulty with speech. Patient does understand well. Shepresented bilateral lower extremity rest pain and had gangremous changes of the right forth toe. She was admitted and placed on therapeutic Lovenox and CT Angiogram showed diffused disease of both lowere extremities with no contiguous runoff of the right leg. She was taken to the operating Suite on the 15 of October where arteriogram occlusion of all 3 of the vessels to the ankle below the knee. I was able to reconstruct the posterior tibial artery with atherectomy and balloon angioplasty of the proximal left anterior tibial artery. Post procedure arteriogram showed good flow to the ankle . Post- procedure she has done well and the ischemic changes of the right 4th toe improved and she did not require amputation of this fourth toe. Patient now will be discharged back to home on her usual medications plus aspirin 81 mg . This includes the Eliquis she is already on BID. She Will Follow up with me in 2 w [facility] and at that time we will consider arterial intervention of the left leg. Vital Signs: Vital Signs (72 hours) 10/18/23 15:26 10/19/23 23:21 10/17/23 16:00 Temperature 98.1 F 99.0 F 98.1 F Pulse Rate 75 63 Pulse Rate [Radial] 69 Respiratory Rate 18 18 20 Blood Pressure 156/88 165/74 Blood Pressure [Left Arm] 159/74 O2 Sat by Pulse Oximetry 94 L 92 L 95 Oxygen Delivery Method Room Air 10/17/23 17:18 10/17/23 20:00 10/17/23 21:15 Temperature 98.4 F Pulse Rate Pulse Rate [Radial] 74 Respiratory Rate 18 Blood Pressure Blood Pressure [Left Arm] 166/78 O2 Sat by Pulse Oximetry 100 Oxygen Delivery Method Room Air Room Air Room Air 10/17/23 21:15 10/17/23 19:00 10/18/23 00:00 Temperature 98.4 F Pulse Rate 72 Pulse Rate [Radial] 74 Respiratory Rate 18 Blood Pressure Blood Pressure [Left Arm] 169/79 O2 Sat by Pulse Oximetry 97 93 L Oxygen Delivery Method Room Air 10/18/23 04:00 10/18/23 08:00 10/18/23 12:00 Temperature 97.9 F 97.9 F 98.1 F Pulse Rate Pulse Rate [Radial] 70 73 75 Respiratory Rate 18 18 18 Blood Pressure Blood Pressure [Left Arm] 171/81 152/84 156/88 O2 Sat by Pulse Oximetry 95 94 L Oxygen Delivery Method Room Air Room Air 10/18/23 08:15 10/18/23 10:05 10/18/23 07:00 Temperature Pulse Rate Pulse Rate [Radial] Respiratory Rate 18 Blood Pressure Blood Pressure [Left Arm] O2 Sat by Pulse Oximetry Oxygen Delivery Method Room Air Room Air 10/18/23 11:05 10/18/23 16:00 10/18/23 19:00 Temperature 99.1 F Pulse Rate Pulse Rate [Radial] 81 Respiratory Rate 20 19 Blood Pressure Blood Pressure [Left Arm] 138/76 O2 Sat by Pulse Oximetry 99 Oxygen Delivery Method Room Air Room Air 10/18/23 20:00 10/19/23 00:00 10/18/23 21:15 Temperature 98.8 F 99.0 F Pulse Rate Pulse Rate [Radial] 71 73 Respiratory Rate 18 18 Blood Pressure Blood Pressure [Left Arm] 159/74 158/72 O2 Sat by Pulse Oximetry 93 L 95 Oxygen Delivery Method Room Air Room Air Room Air 10/18/23 21:15 10/19/23 04:00 10/19/23 07:00 Temperature 99.1 F Pulse Rate 71 Pulse Rate [Radial] 74 Respiratory Rate 18 Blood Pressure Blood Pressure [Left Arm] 157/68 O2 Sat by Pulse Oximetry 98 95 Oxygen Delivery Method Room Air Room Air 10/19/23 08:00 10/19/23 08:14 10/19/23 11:47 Temperature 98.6 F 99.0 F Pulse Rate Pulse Rate [Radial] 77 77 Respiratory Rate 18 18 Blood Pressure Blood Pressure [Left Arm] 179/81 171/79 O2 Sat by Pulse Oximetry 94 L 94 L Oxygen Delivery Method Room Air Room Air Room Air 10/19/23 16:00 10/19/23 16:00 10/19/23 19:00 Temperature 98.7 F 98.7 F Pulse Rate Pulse Rate [Radial] 69 69 Respiratory Rate 18 18 Blood Pressure Blood Pressure [Left Arm] 176/81 176/81 O2 Sat by Pulse Oximetry 96 96 Oxygen Delivery Method Room Air Room Air Room Air 10/19/23 20:00 10/20/23 00:00 10/20/23 04:00 Temperature 99.0 F 98.4 F 98.2 F Pulse Rate Pulse Rate [Radial] 63 68 67 Respiratory Rate 18 18 18 Blood Pressure Blood Pressure [Left Arm] 165/74 167/81 164/77 O2 Sat by Pulse Oximetry 92 L 95 96 Oxygen Delivery Method Room Air Room Air Room Air 10/19/23 21:50 10/19/23 21:50 10/20/23 07:00 Temperature Pulse Rate 68 Pulse Rate [Radial] Respiratory Rate Blood Pressure Blood Pressure [Left Arm] O2 Sat by Pulse Oximetry 95 Oxygen Delivery Method Room Air Room Air 10/20/23 08:00 10/20/23 12:00 10/20/23 12:00 Temperature 97.8 F 97.7 F Pulse Rate Pulse Rate [Radial] 64 59 L Respiratory Rate 17 18 Blood Pressure Blood Pressure [Left Arm] 180/83 164/79 176/80 O2 Sat by Pulse Oximetry 97 97 Oxygen Delivery Method Room Air Room Air Labs: Laboratory Last Values WBC 6.6 X10^3/uL (3.6-10.0) 10/20/23 04:25 RBC 3.35 X10^6/uL (3.5-5.4) L 10/20/23 04:25 Hgb 9.1 g/dL (12.0-16.0) L 10/20/23 04:25 Hct 27.3 % (36.0-47.0) L 10/20/23 04:25 MCV 81.6 fL (80.0-100.0) 10/20/23 04:25 MCH 27.3 pg (27.0-34.0) 10/20/23 04:25 MCHC 33.4 g/dL (33.0-35.0) 10/20/23 04:25 RDW 13.9 % (11.6-16.5) 10/20/23 04:25 Plt Count 190 X10^3/uL (150.0-450.0) 10/20/23 04:25 MPV 9.8 fL (7.4-11.0) 10/20/23 04:25 Neut % (Auto) 60.2 % (42.0-75.0) 10/20/23 04:25 Lymph % (Auto) 24.1 % (21.0-51.0) 10/20/23 04:25 Roberts % (Auto) 12.3 % (0.0-13.0) 10/20/23 04:25 Eos % (Auto) 2.2 % (0.9-2.9) 10/20/23 04:25 Baso % (Auto) 1.2 % (0.2-1.0) H 10/20/23 04:25 Neut # (Auto) 4.0 x10^3/uL (2.2-4.8) 10/20/23 04:25 Lymph # (Auto) 1.6 X10^3/uL (1.3-2.9) 10/20/23 04:25 Roberts # (Auto) 0.8 x10^3/uL (0.3-0.8) 10/20/23 04:25 Eos # (Auto) 0.1 x10^3/uL (0.0-0.2) 10/20/23 04:25 Baso # (Auto) 0.1 X10^3/uL (0.0-0.1) 10/20/23 04:25 Absolute Nucleated RBC 0.1 /100WBC 10/20/23 04:25 Sodium 140 mmol/L (136-145) 10/20/23 04:25 Corrected Sodium 140 mmol/L (136-145) 10/20/23 04:25 Potassium 3.6 mmol/L (3.5-5.1) 10/20/23 04:25 Chloride 103 mmol/L (98-107) 10/20/23 04:25 Carbon Dioxide 32.7 mmol/L (21-32) H 10/20/23 04:25 BUN 9 mg/dL (7-18) 10/20/23 04:25 Creatinine 0.78 mg/dL (0.55-1.02) 10/20/23 04:25 Est GFR (MDRD) Af Amer > 60 (>60) 10/20/23 04:25 Est GFR (MDRD) Non-Af > 60 (>60) 10/20/23 04:25 Glucose 117 mg/dL (65-99) H 10/20/23 04:25 POC Glucose (mg/dL) 134 mg/dL (65-99) H 10/20/23 12:43 Calcium 8.3 mg/dL (8.5-10.1) L 10/20/23 04:25 Corrected Calcium 9.4 mg/dL (8.5-10.1) 10/20/23 04:25 Magnesium 2.3 mg/dL (2.0-2.9) 10/14/23 05:35 Total Bilirubin 0.30 mg/dL (0.2-1.0) 10/20/23 04:25 AST 11 Units/L (15-37) L 10/20/23 04:25 ALT 22 Units/L (12-78) 10/20/23 04:25 Alkaline Phosphatase 76 Units/L (46-116) 10/20/23 04:25 Troponin I High Sens 11.9 ng/L (4.0-60.0) 10/17/23 19:43 Total Protein 6.4 g/dL (6.4-8.2) 10/20/23 04:25 Albumin 2.6 g/dL (3.4-5.0) L 10/20/23 04:25 Globulin 3.8 g/dL (2.5-4.5) 10/20/23 04:25 Albumin/Globulin Ratio 0.7 Ratio (1.1-2.1) L 10/20/23 04:25 Impression: see hospital course Reason For Visit: RIGHT LOWER EXT CRITICAL ISHEMIA Discharge Date Discharge Date: 10/20/23 Discharge Diagnosis All Active Problems (Updated 10/17/23 @ 12:33 by GEORGE PRETTY) AMS (altered mental status) (Acute) Atherosclerosis of [place] arteries of extremities with rest pain, right leg (Acute) Atherosclerosis of [place] arteries of extremities with rest pain, left leg (Acute) Personal history of cerebrovascular accident with current residual effects (Acute) Type 2 diabetes mellitus (Acute) Hyperlipidemia (Acute) GE reflux (Acute) Essential (primary) hypertension (Acute) Plan of Treatment: Continue with present treatment and follow up plan. Pt is to keep follow up appointment as instructed and take medications as ordered. Discharge Medications Discharge Medications: No Known Allergies Allergy (Verified 10/13/23 15:06) CONTINUE taking the following medications apixaban 5 mg tablet (Eliquis) 5 mg PO BID 10/13/23 [History] atorvastatin 20 mg tablet 20 mg PO QDAY 10/13/23 [History] carvedilol 6.25 mg tablet 6.25 mg PO BID 10/13/23 [History] citalopram 10 mg tablet 10 mg PO QDAY 10/13/23 [History] famotidine 20 mg tablet 20 mg PO QPM PRN 10/13/23 [History] glimepiride 4 mg tablet 4 mg PO BID 10/13/23 [History] aspirin , 81 mg po daily Discharge Disposition Assessment: see hospital course. Discharge Plan Discharge Plan Hospital Course: This patient is a 58 year old female with history of left hemispheric stroke with right hemiparesis and some difficulty with speech. Patient does understand well. Shepresented bilateral lower extremity rest pain and had gangremous changes of the right forth toe. She was admitted and placed on therapeutic Loven ox and CT Angiogram showed diffused disease of both lowere extremities with no contiguous runoff of the right leg. She was taken to the operating Suite on the 15 of October where arteriogram occlusion of all 3 of the vessels to the ankle below the knee. I was able to reconstruct the posterior tibial artery with atherectomy and balloon angioplasty of the proximal left anterior tibial artery. Post procedure arteriogram showed good flow to the ankle . Post- procedure she has done well and the ischemic changes of the right 4th toe improved and she did not require amputation of this fourth toe. Patient now will be discharged back to home on her usual medications plus aspirin 81 mg . This includes the Eliquis she is already on BID. She Will Follow up with me in 2 weeks and at that time we will consider arterial intervention of the left leg. Patient Disposition: HOME HEALTH SERVICE Condition: Stable Health Concerns: Post Hospitalization: new medications and changes needed to prevent readmission or further decline. Pt educated and given instructions on all concerns. Care Plan Goals: Problem: Pain/Alteration in Comfort Goal: Improve/ Resolve Pain; Achieve Pain Tolerance Instructions: Take pain medications as prescribed. Contact your primary care provider if your pain is unrelieved or worsens. Follow up with primary care provider as directed. Plan of Treatment: Continue with present treatment and follow up plan. Pt is to keep follow up appointment as instructed and take medications as ordered. Assessment: see hospital course. Prescription drug monitoring program results: PDMP reviewed with concerns identified Prescriptions: New aspirin 81 mg tablet,chewable 81 mg PO QDAY Qty: 120 0RF Continued carvedilol 6.25 mg tablet 6.25 mg PO BID atorvastatin 20 mg tablet 20 mg PO QDAY citalopram 10 mg tablet 10 mg PO QDAY famotidine 20 mg tablet 20 mg PO QPM PRN glimepiride 4 mg tablet 4 mg PO BID Eliquis 5 mg tablet 5 mg PO BID Follow ups/Referrals Follow ups/Referrals: Alexis El [CONSULTING PHYSICIAN] - 11/04/23 1:45 pm Regan Patterson [Primary Care Provider] - 11/05/23 3:30 pm Instructions Instructions: Gangrene, Endovascular Therapy for Peripheral Vascular Disease, Care After, Diabetic Neuropathy, Preventing Diabetes Mellitus Complications Stand Alone Forms: Excuse From Work or School, Post Hospital Follow Up Care
[2023-10-20 16:24] VITALS: BP 163/73; PULSE 57; TEMP 98; O2SAT 98
--- NOTE | 2023-10-21 12:00 | DR.CONSULT ---
CONSULT Consultation for Day of: Date: 10/20/23 Chief Complaint Chief Complaint: Altered mental status Allergies Allergies Allergy/AdvReac Type Severity Reaction Status Date / Time No Known Allergies Allergy Verified 10/13/23 15:06 History of Present Illness History of Present Illness: This is a 58-year-old black female patient of Dr. Lacy. She had a medical consult due to altered mental status. The patient had a CT of her head to rule out acute CVA and it was negative. Disease management has been continued with her. She is being treated for acute ischemic limb disease and is status post revascularization. The patient does have some necrotic appearing wounds on her right foot and was evaluated by podiatry and they decided to hold off on amputation at this time. Patient has been doing well and Dr. Patterson's current plan of care is to discharge her today with usual medications plus aspirin 81mg. She will need to follow up with him in office in two weeks. He will further consider arterial intervention of the left leg at that time. Past Medical History Past Medical History: CVA (With residual weakness of the right arm and right leg and aphasia ), Dyslipidemia, GERD and Hypertension Past Surgical History Surgical History: Other (cataract surgery ) Family History Family Medical History: Diabetes Mellitus, Cancer and Hypertension Social History Does patient currently use any type of tobacco product: No Type of Tobacco Use: None Does any household member use tobacco: No Alcohol Use: Rarely Drug Use: None Medications Home Medications: No Known Allergies Allergy (Verified 10/13/23 15:06) CONTINUE taking the following medications apixaban 5 mg tablet (Eliquis) 5 mg PO BID 10/13/23 [History] atorvastatin 20 mg tablet 20 mg PO QDAY 10/13/23 [History] carvedilol 6.25 mg tablet 6.25 mg PO BID 10/13/23 [History] citalopram 10 mg tablet 10 mg PO QDAY 10/13/23 [History] famotidine 20 mg tablet 20 mg PO QPM PRN 10/13/23 [History] glimepiride 4 mg tablet 4 mg PO BID 10/13/23 [History] New Prescriptions aspirin 81 mg chewable tablet 81 mg PO QDAY #120 tabs 10/20/23 [Rx] Review of Systems Constitutional: No Symptoms Reported Eyes: No Symptoms Reported ENT: No Symptoms Reported Respiratory: No Symptoms Reported Cardiovascular: No Symptoms Reported Gastrointestinal: No Symptoms Reported Genitourinary: No Symptoms Reported Musculoskeletal: No Symptoms Reported Skin: Wound Neurological: Confusion Oriented: Normal Eyes: Normal Ear: Normal Nose: Normal Throat: Normal Respiratory: Diminished Throughout (mild) Cardiovascular: Normal : Normal Auscultation: Bowel Sounds: Normal Palpation: Normal Tenderness: Normal Skin: Wound (right foot) Musculoskeletal: Pulse Deficit, Motor Deficit and Sensory Deficit Psychiatric: Depression Mood Description: Calm Affect: Normal Speech Pattern: Slurred Plan (1) AMS (altered mental status): Status: Acute Plan: Ruled out acute CVA. AMS resolved. Continue current medication regimens. (2) Atherosclerosis of [place] arteries of extremities with rest pain, right leg: Status: Acute (3) Atherosclerosis of [place] arteries of extremities with rest pain, left leg: Status: Acute (4) Personal history of cerebrovascular accident with current residual effects: Status: Acute (5) Essential (primary) hypertension: Status: Acute (6) GE reflux: Status: Acute (7) Hyperlipidemia: Status: Acute (8) Type 2 diabetes mellitus: Status: Acute
== END 2023-10-20 16:10 | disposition home health service (06) | DRG 271 ==
LOC: MED/SURG 14:05 → INTOOBSV 14:05
PROVIDERS: ADMIT Surgery; ATTEND Surgery
DX: R47.89 Other speech disturbances; I10 Essential (primary) hypertension; K21.9 Gastro-esophageal reflux disease without esophagitis; I96 Gangrene, not elsewhere classified; I69.398 Other sequelae of cerebral infarction; I70.223 Atherosclerosis of native arteries of extremities with rest pain, bilateral legs; R41.82 Altered mental status, unspecified; E78.5 Hyperlipidemia, unspecified; Z01.810 Encounter for preprocedural cardiovascular examination; E11.65 Type 2 diabetes mellitus with hyperglycemia; R26.89 Other abnormalities of gait and mobility; Z65.8 Other specified problems related to psychosocial circumstances; R94.31 Abnormal electrocardiogram [ECG] [EKG]

== ENCOUNTER 2024-05-03 18:20 | Inpatient (IN) ==
[2024-05-03] MEDS ORDERED: NovoLIN R (or HumuLIN R) SUBCUT PRN (21:15)
--- NOTE | 2024-05-03 21:49 | DR.H&P ---
H&P History & Physical for Day of: H&P Date: 05/03/24 Chief Complaint Chief Complaint: Painful non-healing wound to the left heel History of Present Illness History of Present Illness: 58 year old female history of left hemispheric stroke and right sided arm and leg weakness and problems with her speech who was seen by me in November of this year for severe ischemia both extremities. At that time had arterial intervention at the right leg and was supposed to come back for intervention the left leg but never was seen in follow-up. Apparently she was seen in the emergency room shortly thereafter in [facility] and referr ed to [facility] for vascualr intervention of the left leg. I have no records of the admission in [place] . Now she has the wound and pain as described above. Past Medical History Past Medical History: CVA (With residual weakness of the right arm and right leg and aphasia ), Diabetes, Dyslipidemia, GERD and Hypertension Past Surgical History Surgical History: Other (cataract surgery ) Additional Surgical History: vascular interventio as recorddr above Family History Family Medical History: Diabetes Mellitus, Cancer and Hypertension Social History Does patient currently use any type of tobacco product: No Have you used tobacco products in the last 12 months: No Type of Tobacco Use: None Alcohol Use: None Drug Use: None Medications Home Medications: Home Medications Medication Instructions Recorded Confirmed Type apixaban 5 mg tablet (Eliquis) 5 mg PO BID 10/13/23 10/13/23 History atorvastatin 20 mg tablet 20 mg PO QDAY 10/13/23 10/13/23 History carvedilol 6.25 mg tablet 6.25 mg PO BID 10/13/23 10/13/23 History citalopram 10 mg tablet 10 mg PO QDAY 10/13/23 10/13/23 History famotidine 20 mg tablet 20 mg PO QPM PRN 10/13/23 10/13/23 History glimepiride 4 mg tablet 4 mg PO BID 10/13/23 10/13/23 History Allergies Allergies Allergy/AdvReac Type Severity Reaction Status Date / Time No Known Allergies Allergy Verified 10/13/23 15:06 Labs Labs: pending Review of Systems Constitutional: See HPI Eyes: No Symptoms Reported ENT: No Symptoms Reported Respiratory: No Symptoms Reported Cardiovascular: No Symptoms Reported and Other (right hemiparesis and dysarthria ) Gastrointestinal: No Symptoms Reported Genitourinary: No Symptoms Reported Musculoskeletal: See HPI Skin: See HPI Neurological: Other (right hemiparesis and dysarthria ) Physical Exam Vital Signs: T=97.1, BP= 179/102, P=81 and regular , R=16 Oriented: Time, Person, Place and Other (has problems wiith speech ,making words but has no apparent receptive problem ) Eyes: Normal Ear: Normal Nose: Normal Throat: Dry (tongue deviates to the right ) Respiratory: Clear Throughout Cardiovascular: Normal : Normal Auscultation: Bowel Sounds: Normal Palpation: Normal Tenderness: Normal Skin: Wound (macerated pressure wound to the left heel, 8 cm in diameter. ) Musculoskeletal: Right (right arm and leg weakness) Psychiatric: Normal Mood Description: Anxious Affect: Anxious Speech Pattern: Unclear and Slurred Assessment/Plan (1) Atherosclerosis of [place] arteries of extremities with rest pain, left leg: Status: Acute Plan: Will plan CT angiogram and intervention of the left leg. Will need to debride the left heel and possibly MRI to assess osteomyelitis. high risk of left below knee amputation (2) Personal history of cerebrovascular accident with current residual effects: Status: Acute Plan: stable left hemispheric CVA (3) Type 2 diabetes mellitus: Status: Acute Plan: sliding scale insulin for now (4) Hyperlipidemia: Status: Acute Plan: home meds (5) GE reflux: Status: Acute Plan: home meds (6) Essential (primary) hypertension: Status: Acute Plan: home meds (7) Atherosclerosis of [place] arteries of extremities with rest pain, right leg: Status: Acute Plan: Right leg head arterial intervention in November of this year. will Monitor and confirm with CT angiogram Review H&P Reviewed: Yes Patient was examined?: Yes
[2024-05-03 22:17] LABS: BASOPHILS # (AUTO) 0.1 X10^3/uL (0.0-0.1); BASOPHILS % (AUTO) 1.3 % (0.2-1.0); EOSINOPHILS # (AUTO) 0.1 x10^3/uL (0.0-0.2); EOSINOPHILS % (AUTO) 2.1 % (0.9-2.9); HEMATOCRIT 28.8 % (36.0-47.0); HEMOGLOBIN 9.9 g/dL (12.0-16.0); LYMPHOCYTES # (AUTO) 1.5 X10^3/uL (1.3-2.9); LYMPHOCYTES % (AUTO) 22.1 % (21.0-51.0); MEAN CORPUSCULAR HGB CONC 34.3 g/dL (33.0-35.0); MEAN CORPUSCULAR VOLUME 81.7 fL (80.0-100.0); MONOCYTES # (AUTO) 0.6 x10^3/uL (0.3-0.8); MONOCYTES % (AUTO) 8.3 % (0.0-13.0); NEUTROPHILS # (AUTO) 4.6 x10^3/uL (2.2-4.8); NEUTROPHILS % (AUTO) 66.2 % (42.0-75.0); PLATELET COUNT 245 X10^3/uL (150.0-450.0); RED BLOOD COUNT 3.53 X10^6/uL (3.5-5.4); RED CELL DISTRIBUTION WIDTH 13.8 % (11.6-16.5); WHITE BLOOD COUNT 6.9 X10^3/uL (3.6-10.0)
[2024-05-03 22:28] LABS: ALANINE AMINOTRANSFERASE 45 Units/L (12-78); ALKALINE PHOSPHATASE 162 Units/L (46-116); ASPARTATE AMINO TRANSFERASE 17 Units/L (15-37); BLOOD UREA NITROGEN 13 mg/dL (7-18); CALCIUM 9.2 mg/dL (8.5-10.1); CARBON DIOXIDE 29.4 mmol/L (21-32); CHLORIDE 104 mmol/L (98-107); COR NA(FOR HYPERGLY) 143 mmol/L (136-145); CREATININE 0.83 mg/dL (0.55-1.02); GLUCOSE 149 mg/dL (65-99); POTASSIUM 3.7 mmol/L (3.5-5.1); SODIUM 142 mmol/L (136-145); TOTAL PROTEIN 7.9 g/dL (6.4-8.2); eGFR NON BLACK RACES > 60 (>60)
[2024-05-03] MEDS ORDERED: OMNIPAQUE 350 mg/mL 50 mL BTL 50 ML ONE (22:35)
[2024-05-03] MEDS ORDERED: OMNIPAQUE 350 mg/mL 100 mL BTL 100 ML ONE (22:35)
[2024-05-03] MEDS: CATAPRES TAB 0.2 MG PO ONE (23:00)
[2024-05-03] MEDS: LR 1,000 ML IV 1,000 ML IV SCH (23:00)
--- NOTE | 2024-05-03 23:40 | CT ---
PROCEDURE: CTA abdomen and pelvis with bilateral iliofemoral runoff. HISTORY: ISCHEMIC LEFT FOOT; . TECHNIQUE: Axial images were performed through the abdomen and pelvis with bilateral iliofemoral runo ff without and with the administration of IV contrast with multiplanar reformations . 3D and MIPS rec onstructions were performed and reviewed. Dose reduction techniques including Automated Exposure Cont rol (AEC) and adjustment of mA and kV were utilized . COMPARISON: None. TECHNICAL QUALITY: This study does not include the proximal abdominal aorta above the renal arteries. FINDINGS: Visualized upper abdominal organs are unremarkable. Gallbladder is not included on this study. No ascites or pneumoperitoneum. No lymphadenopathy. No bowel obstruction or inflammation visualized bowel and normal appendix. Calcified uterine fibroids with the largest measuring 5.5 cm. No fluid or other masses in the pelvis. Normal urinary bladder. Vascular Trace atherosclerosis abdominal aorta with no aneurysm or dissection. Visualized major branches of t he abdominal aorta are unremarkable. Iliofemoral runoff through the pelvis shows no significant abnormality. Unremarkable right femoral arteries. Some minimal athero sclerotic narrowing of the proximal right popliteal artery. Atherosclerosis invo lving trifurcation vessels with a occlusion of the anterior and posterior tibial proximally with lars nstitution of flow in the posterior tibial via collaterals. One-vessel runoff at the ankle involving posterior tibial artery on the right. No significant abnormality involving left femoral arteries of the leg. Mild atherosclerosis left popliteal artery. Scattered atherosclerosis trifurcation vessels on the le ft. Occlusion of the left anterior tibial proximally. Two-vessel runoff at the ankle on the left in volving peroneal and posterior tibial arteries. Subcutaneous scratched at fat stranding both lower extremities in the lower legs could be related to edema or inflammation with no abscess or necrotizing fasciitis. IMPRESSION: 1. Trifurcation vessel disease both lower extremities with a occlusion of the anterior and posterior tibials on the right proximally with reconstitution of flow posterior tibial. One-vessel runoff at t he ankle on the right. 2. Occlusion of the left anterior tibial artery. Two-vessel runoff involving peroneal and posterior tibial arteries on the left at the ankle. 3. Subcutaneous fat stranding both lower extremities could be related to edema or inflammation with n o abscess or necrotizing. 4. Calcified uterine fibroids. THIS IS AN ELECTRONICALLY VERIFIED FINAL REPORT 05/03/2024 11:37 PM - Electronically signed by Otilio Dodge MD
[2024-05-04] MEDS: LOVENOX INJ 80 MG SYR SC SCH
[2024-05-04] MEDS ORDERED: APRESOLINE INJ 20 MG VIAL IVP ONE (00:50)
[2024-05-04 01:01] VITALS: BMI 26.7
[2024-05-04 05:11] LABS: BASOPHILS # (AUTO) 0.1 X10^3/uL (0.0-0.1); BASOPHILS % (AUTO) 0.8 % (0.2-1.0); EOSINOPHILS # (AUTO) 0.1 x10^3/uL (0.0-0.2); EOSINOPHILS % (AUTO) 1.5 % (0.9-2.9); HEMATOCRIT 26.7 % (36.0-47.0); HEMOGLOBIN 9.3 g/dL (12.0-16.0); LYMPHOCYTES # (AUTO) 1.8 X10^3/uL (1.3-2.9); LYMPHOCYTES % (AUTO) 27.8 % (21.0-51.0); MEAN CORPUSCULAR HEMOGLOBIN 28.7 pg (27.0-34.0); MEAN PLATELET VOLUME 9.1 fL (7.4-11.0); MONOCYTES # (AUTO) 0.7 x10^3/uL (0.3-0.8); MONOCYTES % (AUTO) 10.2 % (0.0-13.0); NEUTROPHILS # (AUTO) 3.9 x10^3/uL (2.2-4.8); NEUTROPHILS % (AUTO) 59.7 % (42.0-75.0); PLATELET COUNT 247 X10^3/uL (150.0-450.0); RED BLOOD COUNT 3.25 X10^6/uL (3.5-5.4); RED CELL DISTRIBUTION WIDTH 13.8 % (11.6-16.5); WHITE BLOOD COUNT 6.5 X10^3/uL (3.6-10.0)
[2024-05-04 05:25] LABS: ALANINE AMINOTRANSFERASE 38 Units/L (12-78); ALBUMIN 2.7 g/dL (3.4-5.0); ALKALINE PHOSPHATASE 148 Units/L (46-116); ASPARTATE AMINO TRANSFERASE 15 Units/L (15-37); BLOOD UREA NITROGEN 11 mg/dL (7-18); CHLORIDE 105 mmol/L (98-107); COR NA(FOR HYPERGLY) 143 mmol/L (136-145); GLUCOSE 145 mg/dL (65-99); MAGNESIUM 1.4 mg/dL (2.0-2.9); POTASSIUM 3.6 mmol/L (3.5-5.1); SODIUM 142 mmol/L (136-145); TOTAL PROTEIN 7.2 g/dL (6.4-8.2); eGFR NON BLACK RACES > 60 (>60)
[2024-05-04] MEDS ORDERED: VERSED ONE (07:14)
[2024-05-04] MEDS ORDERED: FENTANYL VIAL INJ 100 mcg ONE (07:14)
[2024-05-04] MEDS ORDERED: DIPRIVAN VIAL 20 ML ONE ×2 (07:15→08:33)
[2024-05-04] MEDS ORDERED: REGLAN INJ 10 MG VIAL ONE (07:15)
[2024-05-04] MEDS ORDERED: ZOFRAN INJ 4 MG VIAL ONE (07:15)
[2024-05-04] MEDS ORDERED: XYLOCAINE 2 % (PLAIN) ONE (07:25)
[2024-05-04] MEDS ORDERED: HEPARIN SODIUM INJ 5000 UNITS ONE (07:43)
--- NOTE | 2024-05-04 07:49 | RAD ---
EXAM:CHEST, 1 VIEWHISTORY:PREOP VASCULAR;COMPARISON:10/18/2023FINDINGS:T he trachea is midline. The cardiac silhouette is unremarkable . The lungs are clear without focal infiltrate or effusion. The bony thorax is unremarkable.IMPRESSION:No acute cardiopulmonary disease.THIS IS AN ELECTRONICALLY VERIFIED FINAL CSITIK0005/04/2024 7:46 AM - Electronically signed by Matthieu Helm MD
[2024-05-04] MEDS: BETADINE SOLN ONE (07:54)
[2024-05-04] MEDS ORDERED: KETAMINE HCL ONE (07:54)
[2024-05-04] MEDS: NS 100 ML IV 100 ML ONE (08:00)
[2024-05-04] MEDS: ANCEF VIAL 1 GRAM ONE (08:00)
[2024-05-04] MEDS: NS 1,000 ML IV 1,000 ML ONE (08:00)
[2024-05-04] MEDS: IODIXANOL ONE (08:30)
[2024-05-04] MEDS: MARCAINE 0.5% ONE (08:30)
[2024-05-04] MEDS: HEPARIN SODIUM IN D5W 75,000 UNITS/1,500 ML BAG ONE (08:30)
--- NOTE | 2024-05-04 08:36 | RAD ---
EXAM:Left foot three viewsHISTORY:GangreneCOMPARISON:None .br.br.br distal 1st phalanx with associated diffuse soft tissue swelling. Osteomyelitis is suspected. There is no soft tissue gas to suggest gas gangrene. Remainder of the bones and joints of the foot are intact and normally aligned.IMPRESSION:Bone loss involving the distal aspect of the 1st distal phalanx suspicious for acute osteomyelitisNo soft tissue gas to suggest gas gangrene at this timeTHIS IS AN ELECTRONICALLY VERIFIED FINAL [id number]/04/2024 8:32 AM - Electronically signed by Dong Colon MD
[2024-05-04] MEDS: COREG TAB 6.25 MG PO SCH (08:48)
[2024-05-04] MEDS: PROTONIX TAB 40 MG PO SCH (08:49)
[2024-05-04] MEDS: LIPITOR TAB 20 MG PO SCH (08:49)
[2024-05-04] MEDS ORDERED: NS 500 ML IV 500 ML IV ONE (09:03)
[2024-05-04] MEDS ORDERED: NS 250 ML IV 250 ML IV ONE (10:18)
[2024-05-04] MEDS: ZOSYN VIAL 3.375 GRAMS 3.375 G in NS 100 ML IV 100 ML IV SCH (10:36)
[2024-05-04] MEDS: NS 250 ML IV 25 ML IV PRN (10:36)
[2024-05-04] MEDS: DILAUDID INJ IVP PRN (19:45)
--- NOTE | 2024-05-04 21:55 | OR.IMMED ---
IMMEDIATE POST-OP NOTE Immediate Post-Op Note Date of surgery/procedure: 05/04/24 Pre-Op Diagnosis: critical ischemia left leg with wound to the left heel Post-Op Diagnosis: same Procedure: Aortogram, arteriogram left leg, angioplasty left peroneal artery, atherectomy and angioplasty proximal left posterior tibial artery Description of Procedure: dictated Surgeon/Assigner: Leonardo Findings: normal aorta and iliac arteries left leg, normal left SFA and left popliteal artery, occluded left anterior tibial artery , severely diseased left peroneal artery, near complete occlusion proximal left posterior tibial artery Estimated Blood Loss: 100cc Complications: none Progress Notes: to CCU, continue IV antibiotics, Begin daily Santyl to the left heel wound
[2024-05-04] MEDS: SNACK - Diabetic Appropriate PO SCH (22:12)
[2024-05-05 05:24] LABS: HEMOGLOBIN 8.9 g/dL (12.0-16.0); RED BLOOD COUNT 3.12 X10^6/uL (3.5-5.4)
[2024-05-05 05:37] LABS: BASOPHILS # (AUTO) 0.1 X10^3/uL (0.0-0.1); BASOPHILS % (AUTO) 0.9 % (0.2-1.0); EOSINOPHILS # (AUTO) 0.1 x10^3/uL (0.0-0.2); EOSINOPHILS % (AUTO) 2.4 % (0.9-2.9); HEMATOCRIT 25.6 % (36.0-47.0); LYMPHOCYTES # (AUTO) 1.4 X10^3/uL (1.3-2.9); LYMPHOCYTES % (AUTO) 22.9 % (21.0-51.0); MEAN CORPUSCULAR HEMOGLOBIN 28.6 pg (27.0-34.0); MEAN CORPUSCULAR HGB CONC 34.9 g/dL (33.0-35.0); MONOCYTES # (AUTO) 0.5 x10^3/uL (0.3-0.8); MONOCYTES % (AUTO) 7.6 % (0.0-13.0); NEUTROPHILS # (AUTO) 4.1 x10^3/uL (2.2-4.8); NEUTROPHILS % (AUTO) 66.2 % (42.0-75.0); PLATELET COUNT 237 X10^3/uL (150.0-450.0); RED CELL DISTRIBUTION WIDTH 13.6 % (11.6-16.5); WHITE BLOOD COUNT 6.2 X10^3/uL (3.6-10.0)
[2024-05-05 05:38] LABS: ALANINE AMINOTRANSFERASE 26 Units/L (12-78); ALBUMIN 2.4 g/dL (3.4-5.0); ALKALINE PHOSPHATASE 132 Units/L (46-116); ASPARTATE AMINO TRANSFERASE 12 Units/L (15-37); BLOOD UREA NITROGEN 14 mg/dL (7-18); CALCIUM 8.5 mg/dL (8.5-10.1); CARBON DIOXIDE 29.7 mmol/L (21-32); CHLORIDE 106 mmol/L (98-107); COR CA(FOR HYPOALB) 9.8 mg/dL (8.5-10.1); CREATININE 1.02 mg/dL (0.55-1.02); GLUCOSE 110 mg/dL (65-99); MAGNESIUM 1.4 mg/dL (2.0-2.9); POTASSIUM 3.8 mmol/L (3.5-5.1); SODIUM 143 mmol/L (136-145); TOTAL PROTEIN 6.8 g/dL (6.4-8.2); eGFR NON BLACK RACES 59 (>60)
[2024-05-05] MEDS ORDERED: CONSULT PHARMACY - POTASSIUM & MAGNESIUM XX SCH ×2 (06:00→08:00)
[2024-05-05] MEDS ORDERED: MAG-OX TAB PO SCH (08:00)
[2024-05-05] MEDS ORDERED: K-DUR TAB 20 MEQ PO SCH (09:00)
[2024-05-05] MEDS: LR 1,000 ML IV 1,000 ML with MAGNESIUM SULFATE 50% INJ VIAL 2 G IV SCH (09:12)
[2024-05-05] MEDS: SANTYL EXT SCH (09:12)
--- NOTE | 2024-05-05 19:04 | NOTE.SOAP ---
Soap Note Note for Day of Date of Exam: 05/05/24 Subjective Data Subjective Data: S/P angioplasty left peroneal artery and atherectomy and angioplasty left posterior tibial artery. Only complaint is pain in left great toe, not her left heel. Has exposed left distal phalanx of the left great toe which Dr. El is following . Otherwise is stable Objective Data Temperature: 98.5 F Pulse Rate: 66 Respiratory Rate: 18 Blood Pressure: 132/62 O2 Sat by Pulse Oximetry: 100 Objective Data: Left foot warm, no crepitance in the left heel , Hgb=8.9, WBC=6.2 Assessment Assessment: critical ischemia left leg , with wound to the left heel , stable Plan Plan: Continue IV antibiotics , Santyl to left heel daily . Hopefully discharge home tomorrow with po antibiotics, Santyl , Xarelto
[2024-05-05] MEDS: XARELTO PO SCH (21:07)
[2024-05-06 04:49] LABS: BASOPHILS % (AUTO) 0.5 % (0.2-1.0); EOSINOPHILS # (AUTO) 0.1 x10^3/uL (0.0-0.2); EOSINOPHILS % (AUTO) 2.4 % (0.9-2.9); HEMATOCRIT 24.5 % (36.0-47.0); HEMOGLOBIN 8.5 g/dL (12.0-16.0); LYMPHOCYTES # (AUTO) 1.4 X10^3/uL (1.3-2.9); MEAN CORPUSCULAR HEMOGLOBIN 28.4 pg (27.0-34.0); MEAN CORPUSCULAR HGB CONC 34.8 g/dL (33.0-35.0); MEAN CORPUSCULAR VOLUME 81.7 fL (80.0-100.0); MEAN PLATELET VOLUME 8.9 fL (7.4-11.0); MONOCYTES # (AUTO) 0.6 x10^3/uL (0.3-0.8); MONOCYTES % (AUTO) 9.5 % (0.0-13.0); NEUTROPHILS # (AUTO) 3.9 x10^3/uL (2.2-4.8); NEUTROPHILS % (AUTO) 64.6 % (42.0-75.0); PLATELET COUNT 231 X10^3/uL (150.0-450.0); RED CELL DISTRIBUTION WIDTH 13.3 % (11.6-16.5); WHITE BLOOD COUNT 6.1 X10^3/uL (3.6-10.0)
[2024-05-06 05:07] LABS: ALANINE AMINOTRANSFERASE 20 Units/L (12-78); ALBUMIN 2.3 g/dL (3.4-5.0); ALKALINE PHOSPHATASE 116 Units/L (46-116); ASPARTATE AMINO TRANSFERASE 9 Units/L (15-37); BLOOD UREA NITROGEN 10 mg/dL (7-18); CALCIUM 8.5 mg/dL (8.5-10.1); CARBON DIOXIDE 29.6 mmol/L (21-32); CHLORIDE 106 mmol/L (98-107); COR CA(FOR HYPOALB) 9.9 mg/dL (8.5-10.1); COR NA(FOR HYPERGLY) 143 mmol/L (136-145); CREATININE 0.94 mg/dL (0.55-1.02); GLUCOSE 142 mg/dL (65-99); POTASSIUM 3.6 mmol/L (3.5-5.1); SODIUM 142 mmol/L (136-145); TOTAL PROTEIN 6.7 g/dL (6.4-8.2); eGFR NON BLACK RACES > 60 (>60)
[2024-05-06 06:20] VITALS: PULSE 70
[2024-05-06] MEDS ORDERED: CONSULT PHARMACY - POTASSIUM & MAGNESIUM XX SCH (07:00)
[2024-05-06 09:24] VITALS: RESP 15; TEMP 98.8
[2024-05-06 09:25] VITALS: O2SAT 99
[2024-05-06 09:27] VITALS: BP 173/77
[2024-05-06] MEDS: K-DUR TAB 20 MEQ PO SCH (10:51)
[2024-05-06] MEDS: ASPIRIN EC 81 MG PO SCH (10:51)
--- NOTE | 2024-05-07 17:13 | W.DIS.FURT ---
Summary of Discharge Discharge Summary of Date Date of Exam: 05/06/24 Admission Date Date of Admission: 05/03/24 Admission Diagnosis Hospital Course: 58 year old female well known to me who has had right lower extremity arterial intervention in November of this year. She was lost to follow up and never came back for me to address the problems with her left leg. In the interim she has been to [place] where vascular intervention of the left leg performed. 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 She presented with pain of her left foot with a non-healing wound to the left heel probably started as a pressure wound . There was a question whether gas was in the left foot. She also had exposed distal phalanx the left great toe with pain here. She was admitted and CT and showed diffused disease distally. She underwent on table arteriogram the next day with angioplasty of the left anterior tibial and left peroneal artery . Post op she has done well with resolution of pain . Santyl is being applied to the left heel wound . She will be on her usual m edications to include Eliquis and will re- start aspirin 81 mg daily. Prescription for Percocet will be given. Follow up with me and Dr. El in 1 week. Vital Signs: Vital Signs (72 hours) 05/05/24 19:01 05/03/24 22:00 05/03/24 20:00 Temperature 98.5 F 97.6 F Pulse Rate 66 Pulse Rate [Left Brachial] 83 Respiratory Rate 18 22 Blood Pressure 132/62 Blood Pressure [Left Arm] 212/98 O2 Sat by Pulse Oximetry 100 100 Oxygen Delivery Method Room Air Oxygen Flow Rate 05/03/24 20:00 05/03/24 19:30 05/03/24 20:24 Temperature 97.6 F Pulse Rate 83 81 84 Pulse Rate [Left Brachial] Respiratory Rate 22 18 16 Blood Pressure 212/98 205/96 174/109 Blood Pressure [Left Arm] O2 Sat by Pulse Oximetry 100 100 100 Oxygen Delivery Method Room Air Room Air Oxygen Flow Rate 05/03/24 21:00 05/03/24 21:20 05/03/24 22:00 Temperature Pulse Rate 81 80 80 Pulse Rate [Left Brachial] Respiratory Rate 13 20 13 Blood Pressure 202/98 178/102 159/75 Blood Pressure [Left Arm] O2 Sat by Pulse Oximetry 99 100 99 Oxygen Delivery Method Room Air Room Air Room Air Oxygen Flow Rate 05/03/24 22:20 05/04/24 00:05 05/04/24 00:46 Temperature Pulse Rate 77 78 76 Pulse Rate [Left Brachial] Respiratory Rate 22 19 14 Blood Pressure 163/79 191/89 154/87 Blood Pressure [Left Arm] O2 Sat by Pulse Oximetry 100 100 100 Oxygen Delivery Method Room Air Room Air Oxygen Flow Rate 05/04/24 03:00 05/04/24 06:07 05/04/24 07:21 Temperature 97.9 F Pulse Rate 67 64 68 Pulse Rate [Left Brachial] Respiratory Rate 14 12 16 Blood Pressure 115/72 145/77 170/89 Blood Pressure [Left Arm] O2 Sat by Pulse Oximetry 100 100 93 L Oxygen Delivery Method Room Air Room Air Room Air Oxygen Flow Rate 05/04/24 07:00 05/04/24 09:40 05/04/24 09:55 Temperature 98.5 F 98.3 F Pulse Rate Pulse Rate [Left Brachial] 57 L 60 Respiratory Rate 10 L 12 Blood Pressure Blood Pressure [Left Arm] 156/77 157/81 O2 Sat by Pulse Oximetry 100 100 Oxygen Delivery Method Room Air Oxygen Flow Rate 05/04/24 10:10 05/04/24 10:25 05/04/24 10:40 Temperature 98.3 F 98.0 F 97.4 F L Pulse Rate Pulse Rate [Left Brachial] 60 61 62 Respiratory Rate 11 L 12 11 L Blood Pressure Blood Pressure [Left Arm] 155/82 160/86 158/85 O2 Sat by Pulse Oximetry 100 100 100 Oxygen Delivery Method Oxygen Flow Rate 05/04/24 11:40 05/04/24 12:40 05/04/24 13:40 Temperature 97.7 F 97.5 F L 97.4 F L Pulse Rate Pulse Rate [Left Brachial] 63 58 L 59 L Respiratory Rate 13 10 L 10 L Blood Pressure Blood Pressure [Left Arm] 154/85 158/87 162/84 O2 Sat by Pulse Oximetry 100 100 100 Oxygen Delivery Method Oxygen Flow Rate 05/04/24 14:40 05/04/24 16:00 05/04/24 19:45 Temperature 98.0 F 98.2 F Pulse Rate 63 Pulse Rate [Left Brachial] 65 Respiratory Rate 15 14 18 Blood Pressure 130/65 Blood Pressure [Left Arm] 130/65 O2 Sat by Pulse Oximetry 100 100 Oxygen Delivery Method Oxygen Flow Rate 05/04/24 20:15 05/04/24 19:00 05/04/24 20:00 Temperature 98.1 F Pulse Rate 66 Pulse Rate [Left Brachial] Respiratory Rate 18 11 L Blood Pressure 148/81 Blood Pressure [Left Arm] O2 Sat by Pulse Oximetry 100 Oxygen Delivery Method Room Air Room Air Oxygen Flow Rate 05/05/24 00:00 05/05/24 04:00 05/05/24 07:00 Temperature 97.9 F 98.4 F Pulse Rate 67 69 Pulse Rate [Left Brachial] Respiratory Rate 10 L 9 L Blood Pressure 125/74 154/74 Blood Pressure [Left Arm] O2 Sat by Pulse Oximetry 100 100 Oxygen Delivery Method Room Air Room Air Nasal Cannula Oxygen Flow Rate 2 05/04/24 19:44 05/04/24 19:44 05/04/24 20:00 Temperature Pulse Rate 75 66 Pulse Rate [Left Brachial] Respiratory Rate 16 11 L Blood Pressure 161/87 Blood Pressure [Left Arm] O2 Sat by Pulse Oximetry 99 100 Oxygen Delivery Method Oxygen Flow Rate 05/04/24 20:01 05/04/24 20:01 05/04/24 20:01 Temperature Pulse Rate 66 Pulse Rate [Left Brachial] Respiratory Rate 11 L Blood Pressure 148/81 148/81 Blood Pressure [Left Arm] O2 Sat by Pulse Oximetry 100 Oxygen Delivery Method Oxygen Flow Rate 05/04/24 21:00 05/04/24 22:00 05/04/24 22:00 Temperature Pulse Rate 67 67 Pulse Rate [Left Brachial] Respiratory Rate 10 L 10 L Blood Pressure 144/80 Blood Pressure [Left Arm] O2 Sat by Pulse Oximetry 100 100 Oxygen Delivery Method Oxygen Flow Rate 05/04/24 23:00 05/04/24 23:00 05/05/24 00:00 Temperature Pulse Rate 70 67 Pulse Rate [Left Brachial] Respiratory Rate 11 L 10 L Blood Pressure 128/75 Blood Pressure [Left Arm] O2 Sat by Pulse Oximetry 99 100 Oxygen Delivery Method Oxygen Flow Rate 05/05/24 00:00 05/05/24 01:00 05/05/24 01:01 Temperature Pulse Rate 68 Pulse Rate [Left Brachial] Respiratory Rate 11 L Blood Pressure 125/74 135/69 Blood Pressure [Left Arm] O2 Sat by Pulse Oximetry 99 Oxygen Delivery Method Oxygen Flow Rate 05/05/24 01:01 05/05/24 02:00 05/05/24 02:00 Temperature Pulse Rate 67 66 Pulse Rate [Left Brachial] Respiratory Rate 9 L 5 L Blood Pressure 143/76 Blood Pressure [Left Arm] O2 Sat by Pulse Oximetry 99 100 Oxygen Delivery Method Oxygen Flow Rate 05/05/24 03:00 05/05/24 03:00 05/05/24 04:00 Temperature Pulse Rate 68 69 Pulse Rate [Left Brachial] Respiratory Rate 10 L 9 L Blood Pressure 139/68 Blood Pressure [Left Arm] O2 Sat by Pulse Oximetry 100 100 Oxygen Delivery Method Oxygen Flow Rate 05/05/24 04:00 05/05/24 05:00 05/05/24 05:00 Temperature Pulse Rate 69 Pulse Rate [Left Brachial] Respiratory Rate 10 L Blood Pressure 154/74 168/81 Blood Pressure [Left Arm] O2 Sat by Pulse Oximetry 100 Oxygen Delivery Method Oxygen Flow Rate 05/05/24 06:00 05/05/24 06:06 05/05/24 06:06 Temperature Pulse Rate 67 72 Pulse Rate [Left Brachial] Respiratory Rate 11 L 10 L Blood Pressure 161/76 Blood Pressure [Left Arm] O2 Sat by Pulse Oximetry 100 99 Oxygen Delivery Method Oxygen Flow Rate 05/05/24 07:00 05/05/24 07:00 05/05/24 08:00 Temperature 98.0 F Pulse Rate 68 Pulse Rate [Left Brachial] Respiratory Rate 22 Blood Pressure 149/67 Blood Pressure [Left Arm] O2 Sat by Pulse Oximetry 100 Oxygen Delivery Method Nasal Cannula Oxygen Flow Rate 2 05/05/24 11:50 05/05/24 08:00 05/05/24 08:00 Temperature Pulse Rate 72 Pulse Rate [Left Brachial] Respiratory Rate 22 14 Blood Pressure 126/64 Blood Pressure [Left Arm] O2 Sat by Pulse Oximetry 99 Oxygen Delivery Method Oxygen Flow Rate 05/05/24 09:00 05/05/24 10:00 05/05/24 11:00 Temperature Pulse Rate 71 63 65 Pulse Rate [Left Brachial] Respiratory Rate 18 11 L Blood Pressure Blood Pressure [Left Arm] O2 Sat by Pulse Oximetry 100 100 100 Oxygen Delivery Method Oxygen Flow Rate 05/05/24 11:55 05/05/24 11:55 05/05/24 11:56 Temperature Pulse Rate 65 65 Pulse Rate [Left Brachial] Respiratory Rate 8 L 5 L Blood Pressure 138/66 Blood Pressure [Left Arm] O2 Sat by Pulse Oximetry 99 99 Oxygen Delivery Method Oxygen Flow Rate 05/05/24 11:56 05/05/24 11:57 05/05/24 11:57 Temperature Pulse Rate 64 Pulse Rate [Left Brachial] Respiratory Rate 2 L Blood Pressure 127/60 126/60 Blood Pressure [Left Arm] O2 Sat by Pulse Oximetry 99 Oxygen Delivery Method Oxygen Flow Rate 05/05/24 11:58 05/05/24 11:58 05/05/24 11:59 Temperature Pulse Rate 64 Pulse Rate [Left Brachial] Respiratory Rate 0 L Blood Pressure 133/62 132/62 Blood Pressure [Left Arm] O2 Sat by Pulse Oximetry 99 Oxygen Delivery Method Oxygen Flow Rate 05/05/24 11:59 05/05/24 12:00 05/05/24 12:20 Temperature 98.8 F Pulse Rate 64 63 Pulse Rate [Left Brachial] Respiratory Rate 0 L 24 24 Blood Pressure Blood Pressure [Left Arm] O2 Sat by Pulse Oximetry 99 99 Oxygen Delivery Method Nasal Cannula Oxygen Flow Rate 2 05/05/24 15:58 05/05/24 13:00 05/05/24 14:00 Temperature 98.5 F Pulse Rate 68 66 Pulse Rate [Left Brachial] Respiratory Rate 12 Blood Pressure Blood Pressure [Left Arm] O2 Sat by Pulse Oximetry 100 99 Oxygen Delivery Method Nasal Cannula Oxygen Flow Rate 2 05/05/24 15:00 05/05/24 19:00 05/05/24 19:00 Temperature Pulse Rate 66 69 Pulse Rate [Left Brachial] Respiratory Rate 18 12 Blood Pressure Blood Pressure [Left Arm] O2 Sat by Pulse Oximetry 100 100 Oxygen Delivery Method Nasal Cannula Nasal Cannula Oxygen Flow Rate 2 2 05/05/24 20:00 05/05/24 21:00 05/05/24 21:13 Temperature 98.2 F Pulse Rate 67 71 Pulse Rate [Left Brachial] Respiratory Rate 11 L 9 L Blood Pressure 163/76 Blood Pressure [Left Arm] O2 Sat by Pulse Oximetry 100 100 Oxygen Delivery Method Oxygen Flow Rate 05/05/24 22:00 05/05/24 22:00 05/05/24 23:00 Temperature Pulse Rate 68 68 Pulse Rate [Left Brachial] Respiratory Rate 10 L 11 L Blood Pressure 163/79 Blood Pressure [Left Arm] O2 Sat by Pulse Oximetry 100 100 Oxygen Delivery Method Oxygen Flow Rate 05/05/24 23:00 05/06/24 00:00 05/06/24 00:01 Temperature 97.9 F Pulse Rate 67 Pulse Rate [Left Brachial] Respiratory Rate 14 Blood Pressure 164/79 146/78 Blood Pressure [Left Arm] O2 Sat by Pulse Oximetry 99 Oxygen Delivery Method Oxygen Flow Rate 05/06/24 01:00 05/06/24 01:00 05/06/24 02:00 Temperature Pulse Rate 66 Pulse Rate [Left Brachial] Respiratory Rate 9 L Blood Pressure 160/72 162/87 Blood Pressure [Left Arm] O2 Sat by Pulse Oximetry 100 Oxygen Delivery Method Oxygen Flow Rate 05/06/24 02:00 05/06/24 03:00 05/06/24 03:00 Temperature Pulse Rate 66 67 Pulse Rate [Left Brachial] Respiratory Rate 8 L 12 Blood Pressure 153/72 Blood Pressure [Left Arm] O2 Sat by Pulse Oximetry 100 97 Oxygen Delivery Method Oxygen Flow Rate 05/06/24 04:00 05/06/24 04:00 05/06/24 05:00 Temperature 98.4 F Pulse Rate 66 66 Pulse Rate [Left Brachial] Respiratory Rate 12 12 Blood Pressure 157/69 Blood Pressure [Left Arm] O2 Sat by Pulse Oximetry 98 97 Oxygen Delivery Method Oxygen Flow Rate 05/06/24 05:00 05/06/24 06:00 05/06/24 06:00 Temperature Pulse Rate 70 Pulse Rate [Left Brachial] Respiratory Rate 10 L Blood Pressure 163/75 168/74 Blood Pressure [Left Arm] O2 Sat by Pulse Oximetry 98 Oxygen Delivery Method Oxygen Flow Rate 05/06/24 07:00 05/06/24 07:00 05/06/24 08:00 Temperature 98.8 F 98.8 F Pulse Rate Pulse Rate [Left Brachial] Respiratory Rate 15 15 Blood Pressure 162/77 182/85 Blood Pressure [Left Arm] O2 Sat by Pulse Oximetry 98 99 Oxygen Delivery Method Nasal Cannula Nasal Cannula Nasal Cannula Oxygen Flow Rate 2 2 2 05/06/24 09:00 Temperature Pulse Rate Pulse Rate [Left Brachial] Respiratory Rate 15 Blood Pressure 173/77 Blood Pressure [Left Arm] O2 Sat by Pulse Oximetry 99 Oxygen Delivery Method Nasal Cannula Oxygen Flow Rate 2 Labs: Laboratory Last Values WBC 6.1 X10^3/uL (3.6-10.0) 05/06/24 04:10 RBC 3.00 X10^6/uL (3.5-5.4) L 05/06/24 04:10 Hgb 8.5 g/dL (12.0-16.0) L 05/06/24 04:10 Hct 24.5 % (36.0-47.0) L 05/06/24 04:10 MCV 81.7 fL (80.0-100.0) 05/06/24 04:10 MCH 28.4 pg (27.0-34.0) 05/06/24 04:10 MCHC 34.8 g/dL (33.0-35.0) 05/06/24 04:10 RDW 13.3 % (11.6-16.5) 05/06/24 04:10 Plt Count 231 X10^3/uL (150.0-450.0) 05/06/24 04:10 MPV 8.9 fL (7.4-11.0) 05/06/24 04:10 Neut % (Auto) 64.6 % (42.0-75.0) 05/06/24 04:10 Lymph % (Auto) 23.0 % (21.0-51.0) 05/06/24 04:10 [place] % (Auto) 9.5 % (0.0-13.0) 05/06/24 04:10 Eos % (Auto) 2.4 % (0.9-2.9) 05/06/24 04:10 Baso % (Auto) 0.5 % (0.2-1.0) 05/06/24 04:10 Neut # (Auto) 3.9 x10^3/uL (2.2-4.8) 05/06/24 04:10 Lymph # (Auto) 1.4 X10^3/uL (1.3-2.9) 05/06/24 04:10 [place] # (Auto) 0.6 x10^3/uL (0.3-0.8) 05/06/24 04:10 Eos # (Auto) 0.1 x10^3/uL (0.0-0.2) 05/06/24 04:10 Baso # (Auto) 0.0 X10^3/uL (0.0-0.1) 05/06/24 04:10 Absolute Nucleated RBC 0.0 /100WBC 05/06/24 04:10 Sodium 142 mmol/L (136-145) 05/06/24 04:10 Corrected Sodium 143 mmol/L (136-145) 05/06/24 04:10 Potassium 3.6 mmol/L (3.5-5.1) 05/06/24 04:10 Chloride 106 mmol/L (98-107) 05/06/24 04:10 Carbon Dioxide 29.6 mmol/L (21-32) 05/06/24 04:10 BUN 10 mg/dL (7-18) 05/06/24 04:10 Creatinine 0.94 mg/dL (0.55-1.02) 05/06/24 04:10 Est GFR (MDRD) Af Amer > 60 (>60) 05/06/24 04:10 Est GFR (MDRD) Non-Af > 60 (>60) 05/06/24 04:10 Glucose 142 mg/dL (65-99) H 05/06/24 04:10 POC Glucose (mg/dL) 140 mg/dL (65-99) H 05/06/24 05:15 Hemoglobin A1c 7.7 % 05/03/24 21:47 Calcium 8.5 mg/dL (8.5-10.1) 05/06/24 04:10 Corrected Calcium 9.9 mg/dL (8.5-10.1) 05/06/24 04:10 Magnesium 2.0 mg/dL (2.0-2.9) 05/06/24 04:10 Total Bilirubin 0.30 mg/dL (0.2-1.0) 05/06/24 04:10 AST 9 Units/L (15-37) L 05/06/24 04:10 ALT 20 Units/L (12-78) 05/06/24 04:10 Alkaline Phosphatase 116 Units/L (46-116) 05/06/24 04:10 Total Protein 6.7 g/dL (6.4-8.2) 05/06/24 04:10 Albumin 2.3 g/dL (3.4-5.0) L 05/06/24 04:10 Globulin 4.4 g/dL (2.5-4.5) 05/06/24 04:10 Albumin/Globulin Ratio 0.5 Ratio (1.1-2.1) L 05/06/24 04:10 Reason For Visit: GANGRENE LEFT LEG Discharge Date Discharge Date: 05/06/24 Discharge Diagnosis All Active Problems (Updated 05/04/24 @ 21:58 by Regan Patterson) Open wound of left heel (Acute) AMS (altered mental status) (Acute) Atherosclerosis of lower [place] arteries of extremities with rest pain, right leg (Acute) Atherosclerosis of lower [place] arteries of extremities with rest pain, left leg (Acute) Personal history of cerebrovascular accident with current residual effects (Ac [place]) Type 2 diabetes mellitus (Acute) Hyperlipidemia (Acute) GE reflux (Acute) Essential (primary) hypertension (Acute) Plan of Treatment: Continue with present treatment and follow up plan. Pt is to keep follow up appointment as instructed and take medications as ordered. Discharge Medications Discharge Medications: No Known Allergies Allergy (Verified 10/13/23 15:06) CONTINUE taking the following medications clopidogrel 75 mg tablet 75 mg PO QDAY 05/05/24 [History] hydralazine 100 mg tablet 100 mg PO TID blood pressure 05/05/24 [History] losartan 50 mg tablet 50 mg PO QDAY 05/05/24 [History] methocarbamol 500 mg tablet 500 mg PO Q6H PRN muscle spasm 05/05/24 [History] ondansetron 4 mg disintegrating tablet 4 mg PO Q8H PRN nausea/vomiting 05/05/24 [History] Eliquis 5 mg po BID aspirin 81 mg po daily percocet 5mg 1 po q 6 hr PRN pain. Discharge Disposition Assessment: see hospital course Discharge Plan Discharge Plan Hospital Course: 58 year old female well known to me who has had right lower extremity arterial intervention in November of this year. She was lost to follow up and never came back for me to address the problems with her left leg. In the interim she has been to [place] where vascular intervention of the left leg performed. 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 She presented with pain of her left foot with a non-healing wound to the left heel probably started as a pressure wound . There was a question whether gas was in the left foot. She also had exposed distal phalanx the left great toe with pain here. She was admitted and CT and showed diffused disease distally. She underwent on table arteriogram the next day with angioplasty of the left anterior tibial and left peroneal artery . Post op she has done well with resolution of pain . Santyl is being applied to the left heel wound . She will be on her usual m edications to include Eliquis and will re- start aspirin 81 mg daily. Prescription for Percocet will be given. Follow up with me and Dr. El in 1 week. Patient Disposition: HOME HEALTH SERVICE Condition: Stable Health Concerns: Post Hospitalization: new medications and changes needed to prevent readmission or further decline. Pt educated and given instructions on all concerns. Care Plan Goals: Problem: Infection Goal: Temperature within normal limits. Resolved infection. Instructions: Follow provided instructions. Follow up with primary physician as directed. Contact primary care physician or report to the closest Emergency Room if condition worsens. Plan of Treatment: Continue with present treatment and follow up plan. Pt is to keep follow up appointment as instructed and take medications as ordered. Assessment: see hospital course Prescription drug monitoring program results: PDMP reviewed and no concerns identified Prescriptions: New oxycodone-acetaminophen [Percocet] 5-325 mg tablet 1 tab PO Q6H MDD 4 PRNQty: 30 0RF Continued losartan 50 mg tablet 50 mg PO QDAY methocarbamol 500 mg tablet 500 mg PO Q6H PRN (Reason: muscle spasm) clopidogrel 75 mg tablet 75 mg PO QDAY hydralazine 100 mg tablet 100 mg PO TID ondansetron 4 mg tablet,disintegrating 4 mg PO Q8H PRN (Reason: nausea/vomiting) atorvastatin 20 mg tablet 20 mg PO QDAY citalopram [Celexa] 10 mg tablet 20 mg PO QDAY famotidine 20 mg tablet 20 mg PO QPM PRN Eliquis 5 mg tablet 5 mg PO BID Follow ups/Referrals Follow ups/Referrals: GIANNA WARD [STAFF PHYSICIAN] - Alexis El [CONSULTING PHYSICIAN] - 05/13/24 2:45 pm Regan Patterson [Primary Care Provider] - 05/12/24 11:45 am Instructions Instructions: Endovascular Therapy for Peripheral Vascular Disease: What to Know After Stand Alone Forms: Find Help Web Site, Post Hospital Follow Up Care
--- NOTE | 2024-05-07 17:48 | DR.OPNOTE ---
OP NOTE Pre-Op Diagnosis: critical ischemia left leg with non-healing pressure wound to the left heel Post-Op Diagnosis: same Procedure Date Date Of Procedure: 05/04/24 Procedure: PROCEDURE: DIAGNOSTIC AORTOGRAM, DIAGNOSTIC ARTERIOGRAM LEFT LEG ANGIOPASTY LEFT PERONEAL ARTERY, ATHERECTOMY AND ANGIOPLASTY LEFT PROXIMAL POSTERIOR TIBIAL ARTERY. SHARP DEBRIDEMENT LEFT HEEL WOUND NARRATIVE : The patient was taken to the operative suite and placed in the supine position. The right groin and entire left leg were prepped and draped in sterile fashion. The patient was given intravenous sedation supervised by myself. Time out for the procedure obtained. Ultrasound used to identify the right femoral artery and the skin overlying it infiltrated with 0.5% Marcaine. Ultrasound then used to guide puncture of the right femoral artery and a 0.012 inch guide wire was placed. Incision made over the guide wire at the skin edge with a # 11 knife blade and a micro sheath placed over the guide wire into the right femoral artery The small guidewire exchanged for a 0.035 inch Advantage glide wire and the micro sheath exchanged for a 5 Fr vascular sheath. Patient given 5000 units of intravenous heparin. Omni catheter was placed over the guide wire into the aorta and diagnostic aortogram carried out with the power injector showing patetnt aorta and ilaic arteries . Omni catheter was used to steer the guide wire down the left common iliac artery to the distal left external iliac artery . Omni catheter was exchanged for a Lodge[place] catheter and sequential arteriograms carried out of the left lower extremity showing patent left superficial femoral artery, patent left popliteal artery, completely occluded left anterior tibial artery , severely diseaesed left peroneal artery throughtout it's length, and near complete occlusion of the proximal left posterior tibial artery . The 5 Fr sheath in the right groin then exchanged for a 7 Fr Catapult destination sheath which was parked in the distal left superficial femoral artery. Lodgepole catheter and the guide wire were used to traverse the arteries of the left leg ultimately ending in the left peroneal artery . This was selective catheterization. 0.035 inch wire removed and exchan ged for a 0.014 inch wire. Over this wire we placed a 2.0 mm [place] angioplasty balloon and dilated the left peroneal martery along it's lenth. We then backed up the wire and selctively catherized the left posterior tibial artery. Over this wire we placed the Jet Stream atherectomy device and performed atherectomy of the left proximal posterior tibial artery , then placed a [place] 3mmx 80mm angioplasty balloon and dilated this artery. At the completion of this a follow up arteriogram showed excellent results . All wires and devices removed. The 7 Fr sheath was pulled back into the aorta and a 0.035 inch wire placed. The destination sheath then exchanged for an Angioseal device used to close the puncture of the right femoral artery. Dressing applied to the left groin. Patient then underwent sharp debridement of the left heel wound measuring 8cm in diameter . #15 knife used for the debrident. Dressing applied to the left heel . The patient taken to [facility] in good condition. Type of Anesthesia: Local (0,5% Marcaine ) Anesthesia Comment: plus MAC Findings: patetn proximal arteries left leg, occluded left anterior tibial artery, severely diseased left peroneal artery, near complete occlusion proximal left posterior tibial artery. Type of Fluids Used:: Lactated Ringers Total Amount of Fluid Infused:: 450 cc Urine output: 1000cc EBL: 100 cc Complications:: none Needle/Sponge Count:: correct Disposition/Condition: Pt. tolerated procedure without difficulty. Taken to [facility] in stable condition.
== END 2024-05-06 13:20 | disposition home health service (06) | DRG 270 ==
LOC: ICU → OBSVTOIN 18:37
PROVIDERS: ADMIT Surgery; ATTEND Surgery
DX: X58.XXXA Exposure to other specified factors, initial encounter; K21.9 Gastro-esophageal reflux disease without esophagitis; I69.398 Other sequelae of cerebral infarction; I70.222 Atherosclerosis of native arteries of extremities with rest pain, left leg; E11.65 Type 2 diabetes mellitus with hyperglycemia; E78.5 Hyperlipidemia, unspecified; S91.302A Unspecified open wound, left foot, initial encounter; A48.0 Gas gangrene

== ENCOUNTER 2024-07-07 06:41 | Observation (INO) ==
[2024-07-07] MEDS: DIPRIVAN VIAL 20 ML ONE (07:13)
[2024-07-07] MEDS: ZEMURON 100 MG VIAL ONE (07:13)
[2024-07-07] MEDS: REGLAN INJ 10 MG VIAL ONE (07:13)
[2024-07-07] MEDS: XYLOCAINE 2 % (PLAIN) ONE (07:13)
[2024-07-07] MEDS: ZOFRAN INJ 4 MG VIAL ONE (07:13)
[2024-07-07] MEDS: PRECEDEX INJ VIAL ONE (07:13)
[2024-07-07] MEDS: PEPCID 20 MG VIAL ONE (07:13)
[2024-07-07] MEDS: BRIDION ONE (07:13)
[2024-07-07] MEDS: VERSED ONE (07:24)
[2024-07-07] MEDS: FENTANYL VIAL INJ 100 mcg ONE (07:24)
[2024-07-07] MEDS: NOZIN NASAL SANITIZER TP ONE (07:30)
[2024-07-07 07:36] VITALS: BMI 28.8
[2024-07-07] MEDS: NS 1,000 ML IV 1,000 ML ONE (07:45)
[2024-07-07] MEDS: ZOFRAN INJ 4 MG VIAL IVP PRN (07:55)
[2024-07-07] MEDS: REGLAN INJ 10 MG VIAL IVP PRN (07:55)
[2024-07-07] MEDS: NS 1,000 ML IV 800 ML IV PRN (07:55)
[2024-07-07] MEDS: VERSED IVP PRN (07:55)
[2024-07-07] MEDS: PEPCID 20 MG VIAL IVP PRN (07:55)
[2024-07-07] MEDS: BETADINE SOLN ONE (08:00)
[2024-07-07] MEDS ORDERED: KETAMINE HCL ONE (08:00)
[2024-07-07] MEDS ORDERED: ULTANE GAS IN ONE (08:00)
[2024-07-07] MEDS: DIPRIVAN VIAL 100 ML IVP PRN (08:08)
[2024-07-07] MEDS: FENTANYL VIAL INJ 100 mcg IVP PRN (08:08)
[2024-07-07] MEDS: ZEMURON 100 MG VIAL IVP PRN (08:08)
[2024-07-07] MEDS: KETAMINE HCL IV PRN (08:08)
[2024-07-07] MEDS: VASOSTRICT INJ 20 UNITS VIAL ONE (08:21)
[2024-07-07] MEDS: DECADRON INJ ONE (08:21)
[2024-07-07] MEDS: VANCOMYCIN HCL ONE (08:23)
[2024-07-07] MEDS: MARCAINE 0.25% INJ ONE (08:23)
[2024-07-07] MEDS: TOBRAMYCIN SULFATE ONE (08:23)
[2024-07-07] MEDS: DECADRON INJ IVP PRN (08:27)
[2024-07-07] MEDS: ANCEF VIAL 1 GRAM IV PRN (08:27)
[2024-07-07] MEDS: NS 100 ML IV 100 ML ONE (08:30)
[2024-07-07] MEDS: ANCEF VIAL 1 GRAM ONE (08:35)
[2024-07-07] MEDS: TORADOL 30 MG VIAL ONE (08:39)
[2024-07-07] MEDS ORDERED: BARHEMSYS INJ IVP PRN (09:00)
[2024-07-07] MEDS ORDERED: BENADRYL INJ 50 MG VIAL IVP PRN (09:00)
[2024-07-07] MEDS ORDERED: ZOFRAN INJ 4 MG VIAL IVP PRN ×2 (09:00→10:05)
[2024-07-07] MEDS ORDERED: DILAUDID INJ IVP PRN (09:00)
[2024-07-07] MEDS: DILAUDID INJ ONE (09:11)
[2024-07-07] MEDS: EPHEDRINE SULFATE INJ ONE (09:38)
[2024-07-07] MEDS: EPHEDRINE SULFATE INJ IVP PRN (09:41)
[2024-07-07] MEDS: DILAUDID INJ IVP PRN (09:53)
[2024-07-07] MEDS: BRIDION IVP PRN (09:55)
[2024-07-07] MEDS: PRECEDEX INJ VIAL IVP PRN (09:56)
[2024-07-07] MEDS ORDERED: NORVASC TAB 10 MG PRN (10:03)
[2024-07-07] MEDS ORDERED: TYLENOL 325 MG TAB PO PRN (10:05)
--- NOTE | 2024-07-07 11:37 | DR.UPDATE ---
H&P Update Prescription drug monitoring program results: PDMP was not reviewed H&P Reviewed: Yes Any changes to H&P?: No Patient was examined?: Yes Vital Signs: Temp Pulse Resp BP Pulse Ox O2 Del Method 07/07/24 11:24 68 18 101/53 100 Room Air 07/07/24 11:19 68 18 104/55 99 Room Air 07/07/24 11:14 68 18 103/55 99 Room Air 07/07/24 11:09 68 18 103/54 100 Room Air 07/07/24 11:04 68 18 103/52 100 Room Air 07/07/24 10:59 68 18 106/55 100 Room Air 07/07/24 10:54 67 18 107/57 100 Room Air 07/07/24 10:49 67 18 107/59 100 Room Air 07/07/24 10:44 67 18 101/54 100 Room Air 07/07/24 10:39 97.8 F 66 18 105/50 97 Room Air 07/07/24 10:34 65 18 114/58 100 Nasal Cannula 07/07/24 10:29 65 18 120/58 100 Nasal Cannula 07/07/24 10:24 64 18 112/58 100 Nasal Cannula 07/07/24 10:19 63 18 112/58 100 Aerosol Face Tent 07/07/24 10:14 63 16 111/56 100 Aerosol Face Tent 07/07/24 10:09 97.8 F 63 16 116/62 100 Aerosol Face Tent 07/07/24 06:55 97.3 F L 77 20 148/68 99 Room Air 07/07/24 06:55 Room Air Procedures (ALL) - Central Line Placement PCM.CLCO: written consent Time out performed: Yes Patient placed pm monitor/pulse ox: Yes MD prep: mask, gown, gloves, other Centrial line prep: chlorhexidine scrub, sterile drapes applied Local anesthsia used: lidocane 1% Ultrasound used for placement: Yes (left brachial v id'd via u/s and cannulation vis) Central line lumen ininserted: double (5.5fr arrow picc. trimmed to 45cm and 0cm exposed) Post procedure: good blood return, all ports aspirated, flushed,capped, sterile dressing applied Post procedure xray: tip oc catheter in good position (appears svc, radiology report pending) Patient tolerated procedure: Yes Complications: none
--- NOTE | 2024-07-07 11:43 | RAD ---
EXAM: CHEST, 1 VIEW HISTORY: picc line placement; COMPARISON: Prior study or studies were utilized for comparison during interpretation with the most relevant hair ed 07/06/2024 TECHNIQUE: CHEST, 1 VIEW FINDINGS: Chest: Lines and tubes: Left upper extremity PICC terminates at the superior cavoatrial junction. Cardiac l chelsea overlie the chest Mediastinum: Cardiomegaly. Pulmonary vessels: There is pulmonary vascular congestion. Lung bell: No suspicious airspace opacity. Pleura: No effusion. No pneumothorax. Bones and soft tissues: No acute osseous or soft tissue abnormality. IMPRESSION: 1. No acute cardiopulmonary abnormality 2. PICC is in satisfactory position THIS IS AN ELECTRONICALLY VERIFIED FINAL REPORT 07/07/2024 11:39 AM - Electronically signed by Thuan Lindo MD
[2024-07-07] MEDS: NS 1,000 ML IV 1,000 ML IV SCH (12:23)
[2024-07-07] MEDS: ZOSYN VIAL 3.375 GRAMS 3.375 G in NS 100 ML IV 100 ML IV SCH (12:23)
[2024-07-07] MEDS: ELIQUIS PO SCH (21:28)
[2024-07-07] MEDS: COLACE CAP 100 MG PO SCH (21:28)
[2024-07-08] MEDS: PERCOCET TAB 5/325 MG PO PRN (05:34)
[2024-07-08] MEDS: NS 250 ML IV 25 ML IV PRN (05:48)
[2024-07-08 06:24] LABS: BLOOD UREA NITROGEN 30 mg/dL (7-18); CALCIUM 8.2 mg/dL (8.5-10.1); CARBON DIOXIDE 27.3 mmol/L (21-32); CHLORIDE 100 mmol/L (98-107); COR NA(FOR HYPERGLY) 135 mmol/L (136-145); CREATININE 0.93 mg/dL (0.55-1.02); GLUCOSE 159 mg/dL (65-99); SODIUM 134 mmol/L (136-145); eGFR NON BLACK RACES > 60 (>60)
[2024-07-08 07:35] LABS: BASOPHILS # (AUTO) 0.1 X10^3/uL (0.0-0.1); BASOPHILS % (AUTO) 0.3 % (0.2-1.0); HEMATOCRIT 23.3 % (36.0-47.0); HEMOGLOBIN 7.6 g/dL (12.0-16.0); LYMPHOCYTES # (AUTO) 1.5 X10^3/uL (1.3-2.9); LYMPHOCYTES % (AUTO) 7.3 % (21.0-51.0); MEAN CORPUSCULAR HEMOGLOBIN 25.1 pg (27.0-34.0); MEAN CORPUSCULAR HGB CONC 32.5 g/dL (33.0-35.0); MEAN CORPUSCULAR VOLUME 77.3 fL (80.0-100.0); MEAN PLATELET VOLUME 9.1 fL (7.4-11.0); MONOCYTES # (AUTO) 1.2 x10^3/uL (0.3-0.8); MONOCYTES % (AUTO) 5.8 % (0.0-13.0); NEUTROPHILS # (AUTO) 17.6 x10^3/uL (2.2-4.8); NEUTROPHILS % (AUTO) 86.6 % (42.0-75.0); PLATELET COUNT 393 X10^3/uL (150.0-450.0); RED BLOOD COUNT 3.02 X10^6/uL (3.5-5.4); RED CELL DISTRIBUTION WIDTH 15.1 % (11.6-16.5); WHITE BLOOD COUNT 20.3 X10^3/uL (3.6-10.0)
--- NOTE | 2024-07-08 07:54 | NOTE.SOAP ---
Soap Note Note for Day of Date of Exam: 07/08/24 Subjective Data Subjective Data: Patient is POD#1 from debridement of heel to left foot and application of external fixator to left foot with tibia osteotomy. She is in severe pain right now. Denies any nausea, vomiting, fevers, chills, shortness of breath, or chest pain. Objective Data Objective Data: Left Lower Extremity Exam: Fixator in place to mid tibia. sponges in place. This area is not saturated. Dressing to left heel. This was taken down. Wound measuring 8 cm x 6 cm x down to calcaneus with antibiotic beads in place and sutured in using 2-0 Nylon. Attempted manual expression, did not see any gross purulence. Edges do not look ischemic. Reapplied 4x4s, ABD, Webroll, ERVIN. Assessment Assessment: POD#1 from debridement of heel to left foot and application of external fixator to left foot with tibia osteotomy Plan Plan: - WBC trending up, she is on Zosyn currently. 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 - PICC Line is in place. ID has been consulted. - Cultures post debridement and lavage are showing rare GPCs. - Wound looks better today, reapplied dressing, will still need another debridement. - Plan is for debridement tomorrow of wound again with placement of antibiotic beads. - Patient understands we are in limb salvage and she has an infection in bone. Understands will likely be here for extended period of time. May require another debridement after tomorrows. - NPO after midnight placed. - Started patient on Dilaudid 1mg q4hr PRN for her severe pain.
[2024-07-08] MEDS: DILAUDID INJ IVP PRN (08:19)
[2024-07-08] MEDS ORDERED: PEPCID TAB 20 MG PO PRN (09:19)
[2024-07-08] MEDS ORDERED: ELIQUIS PO SCH (09:30)
[2024-07-08] MEDS: PLAVIX PO SCH (10:36)
[2024-07-08] MEDS: PROCRIT or EPOGEN VIAL 10,000 UNITS SC ONE (10:36)
[2024-07-08] MEDS: LIPITOR TAB 20 MG PO SCH (10:36)
[2024-07-08] MEDS: MICARDIS PO SCH (10:36)
[2024-07-08] MEDS: NS 100 ML IV 100 ML with VENOFER 100 MG IV ONE (10:36)
[2024-07-08] MEDS: CELEXA PO SCH (10:36)
[2024-07-08] MEDS: APRESOLINE TAB 25 MG PO SCH (13:34)
[2024-07-09] MEDS ORDERED: NOZIN NASAL SANITIZER TP ONE (00:42)
[2024-07-09] MEDS: NOZIN NASAL SANITIZER TP ONE (05:18)
[2024-07-09] MEDS: HIBICLENS WASH EXT ONE (06:21)
[2024-07-09 06:56] LABS: BASOPHILS # (AUTO) 0.1 X10^3/uL (0.0-0.1); BASOPHILS % (AUTO) 0.6 % (0.2-1.0); EOSINOPHILS # (AUTO) 0.1 x10^3/uL (0.0-0.2); EOSINOPHILS % (AUTO) 0.8 % (0.9-2.9); HEMATOCRIT 22.1 % (36.0-47.0); HEMOGLOBIN 7.1 g/dL (12.0-16.0); LYMPHOCYTES # (AUTO) 1.3 X10^3/uL (1.3-2.9); LYMPHOCYTES % (AUTO) 10.5 % (21.0-51.0); MEAN CORPUSCULAR HEMOGLOBIN 25.2 pg (27.0-34.0); MEAN CORPUSCULAR HGB CONC 32.1 g/dL (33.0-35.0); MEAN CORPUSCULAR VOLUME 78.4 fL (80.0-100.0); MEAN PLATELET VOLUME 8.4 fL (7.4-11.0); MONOCYTES # (AUTO) 0.8 x10^3/uL (0.3-0.8); MONOCYTES % (AUTO) 6.6 % (0.0-13.0); NEUTROPHILS # (AUTO) 10.3 x10^3/uL (2.2-4.8); NEUTROPHILS % (AUTO) 81.5 % (42.0-75.0); PLATELET COUNT 364 X10^3/uL (150.0-450.0); RED BLOOD COUNT 2.82 X10^6/uL (3.5-5.4); RED CELL DISTRIBUTION WIDTH 15.5 % (11.6-16.5); WHITE BLOOD COUNT 12.7 X10^3/uL (3.6-10.0)
[2024-07-09] MEDS: XYLOCAINE 1% and EPINEPHRINE 1:100,000 ONE (09:56)
[2024-07-09] MEDS: ANCEF VIAL 1 GRAM ONE (10:24)
[2024-07-09] MEDS: NS 100 ML IV 100 ML ONE (10:24)
[2024-07-09] MEDS: PEPCID 20 MG VIAL IVP PRN (10:40)
[2024-07-09] MEDS: NS 1,000 ML IV 150 ML IV PRN (10:40)
[2024-07-09] MEDS: ZOFRAN INJ 4 MG VIAL IVP PRN (10:40)
[2024-07-09] MEDS: VERSED IVP PRN (10:40)
[2024-07-09] MEDS: REGLAN INJ 10 MG VIAL IVP PRN (10:41)
[2024-07-09] MEDS: NS 1,000 ML IV 1,000 ML ONE (10:43)
[2024-07-09] MEDS: BETADINE SOLN ONE (10:43)
[2024-07-09] MEDS: ANCEF VIAL 1 GRAM IV PRN (10:45)
[2024-07-09] MEDS: PRECEDEX INJ VIAL IVP PRN (10:47)
[2024-07-09] MEDS: KETAMINE HCL IV PRN (10:47)
[2024-07-09] MEDS: DIPRIVAN VIAL 20 ML IVP PRN (10:47)
[2024-07-09] MEDS: MARCAINE 0.25% INJ ONE (10:54)
[2024-07-09] MEDS: TOBRAMYCIN SULFATE ONE (10:54)
[2024-07-09] MEDS: VANCOMYCIN HCL ONE (10:54)
[2024-07-09] MEDS: TORADOL 30 MG VIAL IVP PRN (10:59)
[2024-07-09] MEDS ORDERED: NS IRRIGATION* 500 ML IR ONE (15:34)
[2024-07-09] MEDS ORDERED: CUBICIN VIAL 500 MG ONE (16:51)
[2024-07-09 16:59] LABS: HEMATOCRIT 21.5 % (36.0-47.0)
[2024-07-09] MEDS: CUBICIN VIAL 500 MG IVP SCH (17:16)
[2024-07-09] MEDS: INVanz INJ 1 GRAM VIAL 1 G in NS 100 ML IV 100 ML IV SCH (17:17)
[2024-07-09] MEDS: DILAUDID INJ IVP PRN (19:29)
[2024-07-10 06:50] LABS: BASOPHILS % (AUTO) 0.4 % (0.2-1.0); EOSINOPHILS # (AUTO) 0.2 x10^3/uL (0.0-0.2); EOSINOPHILS % (AUTO) 1.5 % (0.9-2.9); LYMPHOCYTES % (AUTO) 17.4 % (21.0-51.0); MEAN CORPUSCULAR HEMOGLOBIN 25.5 pg (27.0-34.0); MEAN CORPUSCULAR HGB CONC 32.3 g/dL (33.0-35.0); MEAN CORPUSCULAR VOLUME 78.9 fL (80.0-100.0); MEAN PLATELET VOLUME 8.7 fL (7.4-11.0); MONOCYTES # (AUTO) 0.7 x10^3/uL (0.3-0.8); MONOCYTES % (AUTO) 6.5 % (0.0-13.0); NEUTROPHILS # (AUTO) 8.4 x10^3/uL (2.2-4.8); NEUTROPHILS % (AUTO) 74.2 % (42.0-75.0); PLATELET COUNT 367 X10^3/uL (150.0-450.0); RED BLOOD COUNT 2.41 X10^6/uL (3.5-5.4); RED CELL DISTRIBUTION WIDTH 15.5 % (11.6-16.5); WHITE BLOOD COUNT 11.4 X10^3/uL (3.6-10.0)
[2024-07-10 07:02] LABS: ALANINE AMINOTRANSFERASE 10 Units/L (12-78); ALBUMIN 1.8 g/dL (3.4-5.0); ALKALINE PHOSPHATASE 99 Units/L (46-116); ASPARTATE AMINO TRANSFERASE 11 Units/L (15-37); BLOOD UREA NITROGEN 15 mg/dL (7-18); CARBON DIOXIDE 27.2 mmol/L (21-32); CHLORIDE 106 mmol/L (98-107); COR CA(FOR HYPOALB) 9.8 mg/dL (8.5-10.1); CREATINE KINASE 12 Units/L (26-192); CREATININE 0.86 mg/dL (0.55-1.02); GLUCOSE 85 mg/dL (65-99); POTASSIUM 3.8 mmol/L (3.5-5.1); SODIUM 140 mmol/L (136-145); TOTAL PROTEIN 6.1 g/dL (6.4-8.2); eGFR NON BLACK RACES > 60 (>60)
[2024-07-10 07:32] LABS: HEMATOCRIT 19.1 % (36.0-47.0); HEMOGLOBIN 6.1 g/dL (12.0-16.0)
[2024-07-10 07:43] LABS: ANISOCYTOSIS SLIGHT; HYPOCHROMASIA SLIGHT; PLATELET MORPHOLOGY COMMENT NORMAL (NORMAL)
--- NOTE | 2024-07-10 08:34 | NOTE.SOAP ---
Soap Note Note for Day of Date of Exam: 07/10/24 Subjective Data Subjective Data: Patient is resting this morning. She is still complaining of her left lower leg pain. She had a HgBb of [address] Mendoza is giving her 2 units of blood. She has chronic anemia and is on Iron. The dressing was saturated per nursing they had to reinforce. Objective Data Objective Data: Left Lower Extremity Exam: External fixator in place to tibia. Dressing taken down around heel. Wound to plantar heel measuring 7 cm x 7 cm x down to level of calcaneus. Antibiotic beads are in place. I do not see any gross purulence. It does look slightly better than yesterdays OR trip. I also do not see any profuse bleeding from the wound that would require OR intervention to ligate bleeders. I think the bleeding is coming from the medullary aspect of the calcaneus. She is also on eliquis and plavix. This is defintely playing a factor with her chronic anemia and open wound. I redressed the wound with sterile betadine soaked 4x4s, ABD, Ayleen, ERVIN. Assessment Assessment: 58 year old Female with osteomyelitis of the left heel and transverse tibial transport of left tibia POD#1 Debridement of left foot wound POD#3 Debridement calcaneus with application of external fixator and transverse tibia transport, left Plan Plan: - NWB to LLE. - Hgb 6. Receiving 2 units today per nursing from Dr. Mendoza. No profuse bleeding from wound that causes OR to ligate. Believe this is from her anemia due to infection. And her being on Eliquis and Plavix. - Discussed with ID yesterday about antibiotics. She is growing PROVIDENCIA STUARTII. They want her on Ertapenem and Daptomycin. As this bug is resistant to Rocephin and could be resistant to Zosyn. Her WBC has been downtrending since admission. - I redressed the wound today. - She has pain medication on board. - Will discuss with Dr. El today and see if patient needs another debridement early this week or not. Emmett update primary team once heard from him.
[2024-07-10] MEDS: DIPRIVAN VIAL 20 ML ONE (10:26)
[2024-07-10] MEDS: REGLAN INJ 10 MG VIAL ONE (10:26)
[2024-07-10] MEDS: VERSED ONE (10:26)
[2024-07-10] MEDS: TORADOL 30 MG VIAL ONE (10:27)
[2024-07-10] MEDS: ZOFRAN INJ 4 MG VIAL ONE (10:27)
[2024-07-10] MEDS: BETADINE SOLN ONE (10:27)
[2024-07-10] MEDS: PEPCID 20 MG VIAL ONE (10:27)
[2024-07-10 19:26] LABS: BILIRUBIN,URINE NEGATIVE (NEGATIVE); BLOOD/HEMOGLOBIN,URINE NEGATIVE (NEGATIVE); GLUCOSE, URINE NEGATIVE (NEGATIVE); KETONES,URINE NEGATIVE (NEGATIVE); LEUKOCYTE ESTERASE ,URINE NEGATIVE (NEGATIVE); NITRITES,URINE NEGATIVE (NEGATIVE); PROTEIN,URINE 2+ (NEGATIVE); UROBILINOGEN,URINE NORMAL (NORMAL)
[2024-07-10 19:27] LABS: APPEARANCE,URINE CLEAR (CLEAR); COLOR,URINE YELLOW (YELLOW)
[2024-07-10 19:33] LABS: BACTERIA,URINE 1+ /HPF (NEGATIVE); RBC,URINE 0-2 /HPF (0-3); SQUAMOUS EPITHELIAL CELL,UR RARE /HPF (NEGATIVE)
[2024-07-11 06:54] LABS: BASOPHILS # (AUTO) 0.2 X10^3/uL (0.0-0.1); BASOPHILS % (AUTO) 0.9 % (0.2-1.0); EOSINOPHILS # (AUTO) 0.1 x10^3/uL (0.0-0.2); EOSINOPHILS % (AUTO) 0.5 % (0.9-2.9); HEMATOCRIT 26.7 % (36.0-47.0); HEMOGLOBIN 8.9 g/dL (12.0-16.0); LYMPHOCYTES % (AUTO) 5.9 % (21.0-51.0); MEAN CORPUSCULAR HEMOGLOBIN 27.9 pg (27.0-34.0); MEAN CORPUSCULAR HGB CONC 33.4 g/dL (33.0-35.0); MEAN CORPUSCULAR VOLUME 83.5 fL (80.0-100.0); MEAN PLATELET VOLUME 8.5 fL (7.4-11.0); MONOCYTES # (AUTO) 0.5 x10^3/uL (0.3-0.8); MONOCYTES % (AUTO) 2.8 % (0.0-13.0); NEUTROPHILS # (AUTO) 15.3 x10^3/uL (2.2-4.8); NEUTROPHILS % (AUTO) 89.9 % (42.0-75.0); PLATELET COUNT 375 X10^3/uL (150.0-450.0); RED CELL DISTRIBUTION WIDTH 17.3 % (11.6-16.5)
[2024-07-11 07:10] LABS: ALANINE AMINOTRANSFERASE 10 Units/L (12-78); ALKALINE PHOSPHATASE 117 Units/L (46-116); ASPARTATE AMINO TRANSFERASE 13 Units/L (15-37); BLOOD UREA NITROGEN 14 mg/dL (7-18); CALCIUM 8.4 mg/dL (8.5-10.1); CARBON DIOXIDE 23.7 mmol/L (21-32); CHLORIDE 106 mmol/L (98-107); CREATININE 0.68 mg/dL (0.55-1.02); GLUCOSE 83 mg/dL (65-99); POTASSIUM 3.8 mmol/L (3.5-5.1); SODIUM 141 mmol/L (136-145); TOTAL PROTEIN 6.7 g/dL (6.4-8.2); eGFR NON BLACK RACES > 60 (>60)
[2024-07-11] MEDS ORDERED: CONSULT PHARMACY - POTASSIUM & MAGNESIUM XX SCH (08:00)
[2024-07-11] MEDS: K-DUR TAB 20 MEQ PO SCH (09:43)
--- NOTE | 2024-07-11 09:58 | NOTE.SOAP ---
Soap Note Note for Day of Date of Exam: 07/11/24 Subjective Data Subjective Data: Patient is doing okay this am. Per nursing she is a little out of because of her pain medication but when that wears off she is her normal self. Objective Data Objective Data: Left Lower Extremity Exam: Dressing change this am. Wound looks much better today that prior examinations. No purulent discharge. Necrotic tissue seems to be a lot less. Wound measures 7 cm x 7 cm x down to calcaneus. Assessment Assessment: 58 year old Female with osteomyelitis of the left heel and transverse tibial transport of left tibia POD#2 Debridement of left foot wound POD#4 Debridement calcaneus with application of external fixator and transverse tibia transport, left Plan Plan: - NWB to LLE. - Hgb 8 this am. - She is growing PROVIDENCIA STUARTII. Continue Ertapenem and Daptomycin per ID. WBC did have a slight jump this am. - I redressed the wound today. - She has pain medication on board. - Will plan for OR trip tomorrow AM consisting of debridement with possible wound vac application to left foot - NPO after midnight placed. - Will consent pre-op. - Will update OR team.
[2024-07-11 10:50] LABS: ABG ALLEN TEST POS; ABG BASE EXCESS -3.3 mmol/L (-2.0-2.0); ABG HCO3 21.3 mmol/L (22-26)
[2024-07-11] MEDS ORDERED: MILK OF MAGNESIA PO PRN (12:15)
--- NOTE | 2024-07-11 12:19 | CT ---
EXAM: BRAIN W/O CON HISTORY: Seizure; COMPARISON: Head CT examination dated October 17, 2023 TECHNIQUE: Multiple axial images of the head were obtained from the skull base to the vertex without administrat ion of IV contrast. Sagittal and coronal reformatted images were performed. Automated exposure control (AEC) was utilized to adjust the MA and/or kV. 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 There is ex vacuo ventricular dilatation on the l eft side as well. Otherwise, there is moderate sulcal and cisternal prominence as well as atheroscle rotic change in the proximal intracranial carotid and vertebral arteries, which is not out of proport ion to the patient's stated age. There is diffuse CT density alteration seen in the periventricular w pam matter of the high and mid-convexity, which is likely in the setting of small vessel disease and not out of proportion to the patient's stated age. There is mild bilateral ex vacuo ventricular dila tation without evidence for hydrocephalus or herniation syndrome. No midline shift is evident. No acu te intraparenchymal hemorrhage or mass can be identified. If there remains a strong concern for any i ntra-cranial neoplasm, then follow-up with CT or MR imaging of the brain would be more sensitive to e xclude any intra-cranial mass lesion. No extra-axial fluid collections are seen. No new alteration i n the attenuation of the brain parenchyma can be identified to suggest acute or subacute ischemic merle nge. Also, if clinical symptoms are concerning for an acute CVA, then follow-up MRI with DWI sequenci ng is recommended. The extracranial structures are unremarkable. The paranasal sinuses and mastoid ai r cells are relatively clear. IMPRESSION: CT findings of diffuse left frontotemporal encephalomalacia appreciated due to an old/chronic left MC A distribution ischemic event/CVA, unchanged from prior. There is ex vacuo ventricular dilatation on the left side as well. Overall, the examination is stable compared to the prior study. No acute in tracranial hemorrhage or other interval changes from prior seen. If there remains strong clinical co ncern for an acute CVA/ischemic event in this setting, then follow-up brain MRI with diffusion-weight ed sequencing should be considered to definitively exclude acute cerebral ischemia, based on medical history and neurological assessment. THIS IS AN ELECTRONICALLY VERIFIED FINAL REPORT 07/11/2024 12:16 PM - Electronically signed by Karel Delcid MD
[2024-07-11] MEDS ORDERED: ATIVAN INJ 2 MG VIAL ONE (12:39)
[2024-07-11] MEDS: ATIVAN INJ 2 MG VIAL IVP ONE (12:41)
[2024-07-11] MEDS: NS IV SCH ×2 (13:03→14:40)
[2024-07-11] MEDS: CEREBYX IV SCH ×2 (13:03→14:40)
[2024-07-12 05:54] LABS: BASOPHILS # (AUTO) 0.1 X10^3/uL (0.0-0.1); BASOPHILS % (AUTO) 0.6 % (0.2-1.0); EOSINOPHILS # (AUTO) 0.1 x10^3/uL (0.0-0.2); EOSINOPHILS % (AUTO) 0.4 % (0.9-2.9); HEMATOCRIT 22.7 % (36.0-47.0); HEMOGLOBIN 7.6 g/dL (12.0-16.0); LYMPHOCYTES # (AUTO) 1.5 X10^3/uL (1.3-2.9); LYMPHOCYTES % (AUTO) 8.6 % (21.0-51.0); MEAN CORPUSCULAR HEMOGLOBIN 27.9 pg (27.0-34.0); MEAN CORPUSCULAR HGB CONC 33.3 g/dL (33.0-35.0); MEAN CORPUSCULAR VOLUME 83.7 fL (80.0-100.0); MEAN PLATELET VOLUME 8.2 fL (7.4-11.0); MONOCYTES % (AUTO) 5.8 % (0.0-13.0); NEUTROPHILS # (AUTO) 14.5 x10^3/uL (2.2-4.8); NEUTROPHILS % (AUTO) 84.6 % (42.0-75.0); PLATELET COUNT 361 X10^3/uL (150.0-450.0); RED BLOOD COUNT 2.71 X10^6/uL (3.5-5.4); RED CELL DISTRIBUTION WIDTH 17.6 % (11.6-16.5); WHITE BLOOD COUNT 17.1 X10^3/uL (3.6-10.0)
[2024-07-12 06:27] LABS: ALANINE AMINOTRANSFERASE 10 Units/L (12-78); ALBUMIN 1.8 g/dL (3.4-5.0); ALKALINE PHOSPHATASE 85 Units/L (46-116); ASPARTATE AMINO TRANSFERASE 11 Units/L (15-37); BLOOD UREA NITROGEN 14 mg/dL (7-18); CALCIUM 8.3 mg/dL (8.5-10.1); CARBON DIOXIDE 24.7 mmol/L (21-32); CHLORIDE 111 mmol/L (98-107); COR CA(FOR HYPOALB) 10.1 mg/dL (8.5-10.1); CREATININE 0.73 mg/dL (0.55-1.02); GLUCOSE 95 mg/dL (65-99); POTASSIUM 4.4 mmol/L (3.5-5.1); SODIUM 145 mmol/L (136-145); eGFR NON BLACK RACES > 60 (>60)
--- NOTE | 2024-07-12 09:02 | NOTE.SOAP ---
Soap Note Note for Day of Date of Exam: 07/12/24 Subjective Data Subjective Data: Sister at bedside this am. She understands the patient had seizures yesterday. Spoke with telehealth, instructed them seizures could be related to daptomycin. Her CK level was 12 yesterday. She had seizures at 10:30 am and received Daptomycin at 9:40 am. I have suspicion this could be cause. Patient's sister was understanding. Telehealth will update ID team for me. Objective Data Objective Data: Objective Data: Left Lower Extremity Exam: Dressing change this am. Wound looks much better today that prior examinations. No purulent discharge. Necrotic tissue seems to be a lot less. Wound measures 7 cm x 7 cm x down to calcaneus. Assessment Assessment: 58 year old Female with osteomyelitis of the left heel and transverse tibial transport of left tibia POD#3 Debridement of left foot wound POD#5 Debridement calcaneus with application of external fixator and transverse tibia transport, left Plan Plan: - NWB to LLE. - Hgb 7.6 this am. WBC 17.1. - Reviewed CT report which showed no changes from prior examination in October of 2023. Discussed with telehealth at bedside that I believe this seizure could be related to Daptomycin, her CK level was 12 yesterday. Telehealth said do not stop the daptomycin this am. - She is growing PROVIDENCIA STUARTII. Continue Ertapenem and Daptomycin per ID. - I redressed the wound today. - She has pain medication on board. - We will hold off any further debridement at this time until seizure work-up has been finalized and recommendations from ID about daptomycin being the cause. - Patient has a severe limb threatening infection to her left leg and it is medically necessary she stays in the hospital for the time being and receives IV antibiotics as she requires multiple debridements for prevent spread of infection. - CM says she has been accepted for placement they believe. - Will discuss with Dr. El about another possible debridement once medically stable.
[2024-07-12] MEDS: CEREBYX INJ IVP SCH (09:06)
[2024-07-12] MEDS: CIPRO IV 400 MG PREMIX* 400 MG/200 ML IV.SOLN. IV SCH (11:05)
[2024-07-13 05:45] LABS: BASOPHILS # (AUTO) 0.1 X10^3/uL (0.0-0.1); BASOPHILS % (AUTO) 0.4 % (0.2-1.0); EOSINOPHILS # (AUTO) 0.2 x10^3/uL (0.0-0.2); EOSINOPHILS % (AUTO) 1.2 % (0.9-2.9); HEMATOCRIT 23.6 % (36.0-47.0); HEMOGLOBIN 7.9 g/dL (12.0-16.0); LYMPHOCYTES # (AUTO) 1.3 X10^3/uL (1.3-2.9); LYMPHOCYTES % (AUTO) 9.7 % (21.0-51.0); MEAN CORPUSCULAR HEMOGLOBIN 28.1 pg (27.0-34.0); MEAN CORPUSCULAR HGB CONC 33.4 g/dL (33.0-35.0); MEAN CORPUSCULAR VOLUME 84.1 fL (80.0-100.0); MONOCYTES # (AUTO) 0.9 x10^3/uL (0.3-0.8); MONOCYTES % (AUTO) 6.4 % (0.0-13.0); NEUTROPHILS # (AUTO) 11.2 x10^3/uL (2.2-4.8); NEUTROPHILS % (AUTO) 82.3 % (42.0-75.0); PLATELET COUNT 390 X10^3/uL (150.0-450.0); RED BLOOD COUNT 2.81 X10^6/uL (3.5-5.4); RED CELL DISTRIBUTION WIDTH 18.2 % (11.6-16.5); WHITE BLOOD COUNT 13.6 X10^3/uL (3.6-10.0)
[2024-07-13 06:06] LABS: ALANINE AMINOTRANSFERASE 13 Units/L (12-78); ALBUMIN 1.9 g/dL (3.4-5.0); ALKALINE PHOSPHATASE 94 Units/L (46-116); ASPARTATE AMINO TRANSFERASE 19 Units/L (15-37); BLOOD UREA NITROGEN 10 mg/dL (7-18); CALCIUM 8.4 mg/dL (8.5-10.1); CARBON DIOXIDE 25.6 mmol/L (21-32); CHLORIDE 107 mmol/L (98-107); COR CA(FOR HYPOALB) 10.1 mg/dL (8.5-10.1); CREATININE 0.68 mg/dL (0.55-1.02); GLUCOSE 87 mg/dL (65-99); POTASSIUM 4.1 mmol/L (3.5-5.1); SODIUM 139 mmol/L (136-145); TOTAL PROTEIN 6.3 g/dL (6.4-8.2); eGFR NON BLACK RACES > 60 (>60)
[2024-07-13] MEDS: AMPICILLIN-SULBACTAM 3 GM VIAL 3 G in NS 100 ML IV 100 ML IV SCH (09:53)
[2024-07-13] MEDS: VIBRAMYCIN PO SCH (09:55)
--- NOTE | 2024-07-13 15:34 | NOTE.SOAP ---
Soap Note Note for Day of Date of Exam: 07/13/24 Subjective Data Subjective Data: Patient is much more awake and alert today since being off the Ertapenem and Daptomycin. She is communicating like she was prior to surgery. Objective Data Objective Data: Left Lower Extremity Exam: Dressing change this am. Wound continues to look better. No purulent discharge. Necrotic tissue seems to be a lot less. Wound measures 7 cm x 7 cm x down to calcaneus. I did start her program for the external fixator. She started at top with 3 dots. I first loosened the stop nut then took a 10 mm wrench and turned opposite of the plus sign 4 turns until the 3 dots were facing forward again. Assessment Assessment: 58 year old Female with osteomyelitis of the left heel and transverse tibial transport of left tibia. She has severe limb threatening infection to her left leg and it is medically necessary she stays in the hospital for the time being and receives IV antibiotics as she requires multiple debridements for prevent spread of infection POD#4 Debridement of left foot wound POD#6 Debridement calcaneus with application of external fixator and transverse tibia transport, left Program for distraction on the external fixator started on 07/14/2023 Plan Plan: - NWB to LLE. - Hgb 7.9 this am. WBC 13.6. - Has been on Daptomycin and Ertapenem. Both have been stopped per ID. She has been placed on Doxycycline and Unasyn as well as Cipro. - I redressed the wound today. - She has pain medication on board. - We will be performing another debridement tomorrow now that she is stable. NPO after midnight order placed. - Discussed with patient that she may have wound vac placed tomorrow. She understood that. - Will obtain consent.
[2024-07-14] MEDS: HIBICLENS WASH EXT ONE (01:07)
[2024-07-14 05:51] LABS: BASOPHILS # (AUTO) 0.1 X10^3/uL (0.0-0.1); BASOPHILS % (AUTO) 0.4 % (0.2-1.0); EOSINOPHILS # (AUTO) 0.2 x10^3/uL (0.0-0.2); EOSINOPHILS % (AUTO) 1.6 % (0.9-2.9); HEMATOCRIT 26.3 % (36.0-47.0); HEMOGLOBIN 8.8 g/dL (12.0-16.0); LYMPHOCYTES # (AUTO) 1.2 X10^3/uL (1.3-2.9); MEAN CORPUSCULAR HEMOGLOBIN 27.9 pg (27.0-34.0); MEAN CORPUSCULAR HGB CONC 33.4 g/dL (33.0-35.0); MEAN CORPUSCULAR VOLUME 83.5 fL (80.0-100.0); MEAN PLATELET VOLUME 8.2 fL (7.4-11.0); MONOCYTES # (AUTO) 0.7 x10^3/uL (0.3-0.8); MONOCYTES % (AUTO) 5.1 % (0.0-13.0); NEUTROPHILS # (AUTO) 12.4 x10^3/uL (2.2-4.8); NEUTROPHILS % (AUTO) 84.9 % (42.0-75.0); PLATELET COUNT 401 X10^3/uL (150.0-450.0); RED BLOOD COUNT 3.15 X10^6/uL (3.5-5.4); RED CELL DISTRIBUTION WIDTH 18.7 % (11.6-16.5); WHITE BLOOD COUNT 14.6 X10^3/uL (3.6-10.0)
[2024-07-14 06:08] LABS: ALANINE AMINOTRANSFERASE 18 Units/L (12-78); ALBUMIN 1.8 g/dL (3.4-5.0); ALKALINE PHOSPHATASE 107 Units/L (46-116); ASPARTATE AMINO TRANSFERASE 24 Units/L (15-37); BLOOD UREA NITROGEN 8 mg/dL (7-18); CARBON DIOXIDE 26.8 mmol/L (21-32); CHLORIDE 104 mmol/L (98-107); COR CA(FOR HYPOALB) 9.8 mg/dL (8.5-10.1); GLUCOSE 103 mg/dL (65-99); POTASSIUM 3.7 mmol/L (3.5-5.1); SODIUM 138 mmol/L (136-145); TOTAL PROTEIN 6.3 g/dL (6.4-8.2); eGFR NON BLACK RACES > 60 (>60)
[2024-07-14] MEDS ORDERED: NS 100 ML IV 100 ML ONE (08:55)
[2024-07-14] MEDS ORDERED: ANCEF VIAL 1 GRAM ONE (08:55)
[2024-07-14] MEDS: NS 1,000 ML IV 1,000 ML ONE (08:55)
[2024-07-14] MEDS ORDERED: CONSULT PHARMACY - POTASSIUM & MAGNESIUM XX SCH (09:00)
[2024-07-14] MEDS ORDERED: VERSED ONE (09:21)
[2024-07-14] MEDS ORDERED: DIPRIVAN VIAL 20 ML ONE (09:22)
[2024-07-14] MEDS ORDERED: FENTANYL VIAL INJ 100 mcg ONE (09:22)
[2024-07-14] MEDS ORDERED: ZOFRAN INJ 4 MG VIAL ONE (09:22)
[2024-07-14] MEDS: NS 1,000 ML IV 100 ML IV PRN (09:29)
[2024-07-14] MEDS: ANCEF VIAL 1 GRAM IV PRN (09:29)
[2024-07-14] MEDS: VERSED IVP PRN (09:34)
[2024-07-14] MEDS ORDERED: MARCAINE 0.25% INJ ONE (09:35)
[2024-07-14] MEDS: FENTANYL VIAL INJ 100 mcg IVP PRN (09:37)
[2024-07-14] MEDS: DIPRIVAN VIAL 180 ML IVP PRN (09:38)
[2024-07-14] MEDS: ZOFRAN INJ 4 MG VIAL IVP PRN (09:44)
[2024-07-14] MEDS: K-RIDER 10 MEQ/100 ML WATER 10 MEQ/100 ML BAG IV SCH (10:47)
[2024-07-14 16:44] VITALS: BP 150/75; PULSE 83; TEMP 97.8; O2SAT 99
[2024-07-14 16:58] VITALS: RESP 18
== END 2024-07-14 17:05 | disposition home health service (06) ==
LOC: MED/SURG → OBSVTOIN 06:41 → INTOOBSV 06:41
PROVIDERS: ADMIT Obstetrics & Gynecology Obstetrics; ATTEND Obstetrics & Gynecology Obstetrics
PROC: APEXFIX (2024-07-07 07:45)
PROC: DEBRIDE (2024-07-07 07:45)
DX: B95.2 Enterococcus as the cause of diseases classified elsewhere; E11.42 Type 2 diabetes mellitus with diabetic polyneuropathy; G89.18 Other acute postprocedural pain; I70.222 Atherosclerosis of native arteries of extremities with rest pain, left leg; L89.893 Pressure ulcer of other site, stage 3; I96 Gangrene, not elsewhere classified; I10 Essential (primary) hypertension; Z16.19 Resistance to other specified beta lactam antibiotics; E87.1 Hypo-osmolality and hyponatremia; M86.8X7 Other osteomyelitis, ankle and foot; B96.89 Other specified bacterial agents as the cause of diseases classified elsewhere; M24.572 Contracture, left ankle; Z58.89 Other problems related to physical environment; G92.00 Immune effector cell-associated neurotoxicity syndrome, grade unspecified; B95.7 Other staphylococcus as the cause of diseases classified elsewhere; Z16.12 Extended spectrum beta lactamase (ESBL) resistance; I69.320 Aphasia following cerebral infarction; E87.6 Hypokalemia; M21.862 Other specified acquired deformities of left lower leg; E11.65 Type 2 diabetes mellitus with hyperglycemia; G40.89 Other seizures; Z16.29 Resistance to other single specified antibiotic; Z16.11 Resistance to penicillins; R26.89 Other abnormalities of gait and mobility